=== PATIENT | male | born 1955 | race Caucasian/White ===

== ENCOUNTER 2019-03-21 10:17 | Emergency (ER) | payer OTHER ==
[2019-03-21] MEDS ORDERED: methylPREDNISolone SOD SUCCI 125 MG/2 ML VIAL IV STA (10:39)
[2019-03-21] MEDS ORDERED: IPRATROPIUM 0.5 MG/2.5 ML NEBU INHALATION STA (10:39)
[2019-03-21] MEDS ORDERED: ALBUTEROL NEBULIZED 2.5 MG/3 ML INHALATION STA (10:39)
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
[2019-03-21 11:07] LABS: ALT 39 U/L (4-49); AST 72 U/L (17-59); African American GFR (CKD) >90 (>60 ml/min/1.73 sqM); Albumin 3.3 g/dL (3.5-5.0); Anion Gap 7 mmol/L; Blood Urea Nitrogen 15 mg/dL (9-20); Calcium 9.3 mg/dL (8.4-10.2); Carbon Dioxide 23 mmol/L (22-30); Chloride 112 mmol/L (98-107); Glucose 94 mg/dL (74-99); Non-African American GFR(CKD) >90 (>60 ml/min/1.73 sqM); Potassium 4.3 mmol/L (3.5-5.1); Sodium 142 mmol/L (137-145); Total Protein 6.8 g/dL (6.3-8.2)
[2019-03-21 11:08] LABS: Alkaline Phosphatase 178 U/L (38-126); Magnesium 1.7 mg/dL (1.6-2.3)
[2019-03-21 11:13] LABS: D-Dimer 0.57 mg/L FEU (<0.60); HCT 41.3 % (39.0-53.0); HGB 13.8 gm/dL (13.0-17.5); INR 1.2 (<1.2); MCH 34.8 pg (25.0-35.0); MCHC 33.3 g/dL (31.0-37.0); MCV 104.4 fL (80.0-100.0); Macrocytosis Slight; Mean Platelet Volume 7.9; Platelet Count 108 k/uL (150-450); Prothrombin Time 12.6 sec (9.0-12.0); RBC 3.96 m/uL (4.30-5.90); RDW 14.1 % (11.5-15.5); WBC 4.4 k/uL (3.8-10.6)
--- NOTE | 2019-03-21 11:26 | XR ---
EXAMINATION TYPE: XR chest 2V DATE OF EXAM: 03/21/2019 COMPARISON: 07/07/2011 HISTORY: 63-year-old male shortness of breath, difficulty breathing TECHNIQUE: PA and lateral views FINDINGS: Heart upper limits of normal in size. Aorta within normal limits. Mild interstitial prominence slight ly increased. Nodular density right base. No consolidation or pleural effusion. Mild to moderate ante rior wedging of a lower thoracic vertebral body slightly progressed from 06/05/2011, age indeterminate . Anterior wedging of a midthoracic vertebral body is unchanged. Plate and screw fixation along the b ilateral clavicles. Multiple old healed right-sided rib fracture deformities. IMPRESSION: 1. Increased interstitial prominence could reflect bronchitis or asthma. Correlate for possible under lying COPD. 2. Nodular density at the right base, probable nipple shadow. Short interval follow-up utilizing nipp le markers recommended. 3. Mild to moderate anterior wedging of a lower thoracic vertebral body is age indeterminate but note d to be progressed from 2011. Additional anterior wedging of a midthoracic vertebral body is chronic back to 2011.
[2019-03-21 12:00] LABS: Eosinophils # (M) 0.75 k/uL (0-0.7); Lymphocytes # (M) 1.67 k/uL (1.0-4.8); Monocytes # (M) 0.44 k/uL (0-1.0); Neutrophils # (M) 1.54 k/uL (1.3-7.7); Neutrophils % (M) 35 %; Nucleated Red Blood Cells 0 /100 WBC (0-0); Total Cells Counted 100
[2019-03-21 12:30] VITALS: BP 151/78; PULSE 72; RESP 18; TEMP 98
== END 2019-03-21 12:28 | disposition home or self-care (01) ==
LOC: EC 10:17
DX: J45.901 Unspecified asthma with (acute) exacerbation (principal); I10 Essential (primary) hypertension; Z79.899 Other long term (current) drug therapy; Z87.891 Personal history of nicotine dependence
CPT/HCPCS: 36415; 94640; 93005; 85379; 80053; 83735; 84484; 85025; 85610; 85730; 71046; 99285; 96374; J2930

== ENCOUNTER 2019-04-17 07:19 | Inpatient (IN) | payer OTHER ==
[2019-04-17] MEDS ORDERED: SODIUM CHLORIDE 0.9% 1,000 ML IV ONE (07:35)
[2019-04-17] MEDS ORDERED: SODIUM CHLORIDE 0.9% 500 ML 500 ML IV ONE (07:35)
[2019-04-17] MEDS ORDERED: IPRATROPIUM-ALBUTEROL 3 ML NEB INHALATION STA (07:37)
[2019-04-17] MEDS ORDERED: ENALAPRILAT 1.25 MG/ML 1 ML VIAL IVP STA ×2 (07:40→09:11)
[2019-04-17 07:42] LABS: Glucose,Whole Blood 91 mg/dL (75-99)
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
[2019-04-17 08:05] LABS: Basophils # (A) 0.1 k/uL (0-0.2); Basophils % (A) 2 %; Eosinophils # (A) 0.4 k/uL (0-0.7); Eosinophils % (A) 6 %; HGB 13.8 gm/dL (13.0-17.5); Lymphocytes # (A) 1.2 k/uL (1.0-4.8); Lymphocytes % (A) 18 %; MCH 34.3 pg (25.0-35.0); MCHC 32.9 g/dL (31.0-37.0); MCV 104.2 fL (80.0-100.0); Macrocytosis Slight; Mean Platelet Volume 7.3; Monocytes # (A) 0.7 k/uL (0-1.0); Monocytes % (A) 10 %; Neutrophils % (A) 60 %; Platelet Count 115 k/uL (150-450); RBC 4.03 m/uL (4.30-5.90); WBC 6.7 k/uL (3.8-10.6)
[2019-04-17 08:17] LABS: ALT 26 U/L (4-49); AST 46 U/L (17-59); African American GFR (CKD) >90 (>60 ml/min/1.73 sqM); Albumin 3.2 g/dL (3.5-5.0); Alkaline Phosphatase 184 U/L (38-126); Anion Gap 7 mmol/L; Blood Urea Nitrogen 15 mg/dL (9-20); Calcium 8.7 mg/dL (8.4-10.2); Carbon Dioxide 22 mmol/L (22-30); Chloride 114 mmol/L (98-107); Creatine Kinase 47 U/L (55-170); Glucose 92 mg/dL (74-99); Magnesium 1.9 mg/dL (1.6-2.3); Non-African American GFR(CKD) >90 (>60 ml/min/1.73 sqM); Potassium 3.4 mmol/L (3.5-5.1); Sodium 143 mmol/L (137-145); Total Bilirubin 2.2 mg/dL (0.2-1.3); Total Protein 6.5 g/dL (6.3-8.2)
[2019-04-17 08:25] LABS: Appearance,Urine Clear (Clear); Bilirubin,Urine Negative (Negative); Blood,Urine Negative (Negative); Color,Urine Yellow; Glucose,Urine (UA) Negative (Negative); Ketones,Urine Negative (Negative); Leukocyte Esterase,Urine Negative (Negative); Nitrite,Urine Negative (Negative); Protein,Urine Negative (Negative); Specific Gravity,Urine 1.009 (1.001-1.035)
[2019-04-17 08:30] LABS: INR 1.2 (<1.2); Partial Thromboplastin Time 28.8 sec (22.0-30.0); Prothrombin Time 11.9 sec (9.0-12.0)
[2019-04-17 08:43] LABS: Amphetamine Screen,Urine Not Detected (NotDetected); Barbiturate Screen,Urine Not Detected (NotDetected); Benzodiazepines Screen,Urine Not Detected (NotDetected); Cocaine Screen,Urine Not Detected (NotDetected); Methadone Screen, Urine Not Detected (NotDetected); Opiate Screen,Urine Not Detected (NotDetected); Oxycodone Screen, Urine Not Detected (NotDetected); Phencyclidine Screen,Urine Not Detected (NotDetected); Tricyclic Antidepressant,Urine Not Detected (NotDetected); Urn Cannabinoid Scrn Not Detected (NotDetected)
--- NOTE | 2019-04-17 08:56 | XR ---
EXAMINATION TYPE: XR chest 2V DATE OF EXAM: 04/17/2019 HISTORY: altered mental status. REFERENCE: Previous study dated 03/21/2019. FINDINGS: The study is reversed [id number]. The heart is mildly enlarged. There is some increased opacity in the left lower lobe. This may repres ent developing pneumonia or atelectasis. The right lung is clear. Minimal shadow is no longer clearly evident. There is bilateral internal fixation of the clavicles. There are stable wedge compression fractures o f several of the lower dorsal vertebra. IMPRESSION: WORSENING LEFT LOWER LOBE AIRSPACE DISEASE.
--- NOTE | 2019-04-17 09:05 | CT ---
EXAMINATION TYPE: CT brain wo con DATE OF EXAM: 04/17/2019 COMPARISON: NONE HISTORY: Altered mental status. CT DLP: 2031.3 mGycm Automated exposure control for dose reduction was used. FINDINGS: There are generalized changes of sulcal prominence and ventriculomegaly, compatible with mild atrophi c change. There is diffuse periventricular white matter lucency, compatible with chronic white matter ischemic change. There is no acute focal lesion, mass effect or midline shift identified. I do not s ee evidence of intracranial blood. There is mucoperiosteal thickening involving the ethmoid sinuses, worse on the right than the left. T here is also new periosteal thickening involving the maxillary sinuses and there is an air-fluid leve l in the right maxillary sinus. The mastoid air cells are under aerated this may reflect chronic mast oiditis. The bony calvarium is intact. IMPRESSION: 1. NO ACUTE INTRACRANIAL ABNORMALITY. 2. DEGENERATIVE CHANGE. 3. ACUTE ON CHRONIC MAXILLARY AND ETHMOIDAL SINUS MUCOSAL DISEASE. 4. UNDERAERATION OF THE MASTOIDS MAY REFLECT OLD, CHRONIC MASTOIDITIS.
--- NOTE | 2019-04-17 10:08 | US ---
EXAMINATION TYPE: US liver DATE OF EXAM: 04/17/2019 COMPARISON: NONE CLINICAL HISTORY: Elevated alk phos, pneumonia, bilirubin history of. EXAM MEASUREMENTS: Liver Length: 12.4 cm Gallbladder Wall: 0.3 cm CBD: 0.3 cm Right Kidney: 10.7 x 5.3 x 5.5 cm Patient unable to roll on his side or hold his breath, technically difficult and limited study. Pancreas: Obscured by bowel gas Liver: portions view show lobular attenuating liver, not well seen Gallbladder: limited views show stone and sludge Evidence for sonographic Mason's sign: CBD: wnl as seen limited visualization Right Kidney: wnl as seen, limited view The pancreas is obscured by bowel gas. The liver is normal in size without evidence of biliary dilatation. The liver is somewhat nodular in its appearance. There is a stone and some sludge within the gallbladder. The gallbladder wall measures 3 mm. The comm on hepatic duct measures 3 mm. Limited views of the right kidney are unremarkable. IMPRESSION: 1. NODULAR APPEARANCE TO THE LIVER MAY BE SECONDARY TO CIRRHOSIS. 2. CHOLELITHIASIS.
[2019-04-17] MEDS ORDERED: LACTULOSE 20 GM/30 ML CUP PO ONE (11:34)
[2019-04-17] MEDS ORDERED: NALOXONE 0.4 MG/ML 1 ML VIAL IV PRN (11:35)
[2019-04-17] MEDS: SODIUM CHLORIDE 0.9% 1,000 ML IV SCH ×2 (12:11→23:51)
[2019-04-17] MEDS ORDERED: ACETAMINOPHEN TAB 325 MG TAB PO PRN (17:02)
[2019-04-17] MEDS ORDERED: MELATONIN 3 MG TABLET PO PRN (17:02)
[2019-04-17] MEDS ORDERED: ONDANSETRON 4 MG/2 ML VIAL IVP PRN (17:02)
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
[2019-04-17] MEDS ORDERED: ALBUTEROL NEBULIZED 2.5 MG/3 ML INHALATION PRN (17:04)
[2019-04-17] MEDS ORDERED: DOCUSATE 100 MG CAP PO PRN (17:04)
--- NOTE | 2019-04-17 17:24 | CT ---
EXAMINATION TYPE: CT lumbar spine wo con DATE OF EXAM: 04/17/2019 COMPARISON: CT 12/16/2014 HISTORY: 63-year-old male low back pain, pain to palpation of the L4 spinous process. TECHNIQUE: Contiguous axial scanning of the lumbar spine without IV contrast. Coronal and sagittal re constructions performed. CT DLP: 877.5 mGycm Automated exposure control for dose reduction was used. FINDINGS: Small hiatal hernia. Dependent opacity right base, probably atelectasis. Tortuous lower thoracic aort a. Large collateral vessels in the left upper quadrant. 2 mm nonobstructing right renal calculus. Lar ge 3.3 cm gallstone. Likely tiny margin is 6 mm lateral left kidney. Chronic appearing inferior endplate fracture of L3 with overall 25% anterior height loss. Chronic appearing superior endplate deformity of T12. No retropulsion into the spinal canal. Some subtle lucencies are seen around the inferior endplate of L4 particularly on the axial series, r eferred to soft tissue windows axial image 56 and coronal image 32. Overall vertebral body height los s is maintained. No retropulsion into the spinal canal. Bulging discs are present from L3 through S1 levels. There may be mild narrowing of the spinal canal at L3-L4. No high-grade canal compromise. Facet arthropathy lower lumbar spine. The left, changes located in mild to moderate neuroforaminal narrowing at multiple levels. On the right, moderate neuroforaminal narrowing at L3-L4 and [id number] at additional levels. IMPRESSION: 1. CHRONIC APPEARING ENDPLATE DEFORMITIES OF T12 AND L3 VERTEBRAL BODIES. 2. HOWEVER, SUBTLE LUCENCIES ARE PRESENT INVOLVING THE L4 INFERIOR ENDPLATE. FINDINGS HIGHLY SUSPICIO US FOR A NONDISPLACED INFERIOR ENDPLATE FRACTURE. 3. DEGENERATIVE DISC DISEASE AND FACET ARTHROPATHY ABOVE. NO RETROPULSION SEEN INTO THE SPINAL CAN AL.
--- NOTE | 2019-04-17 17:44 | CT ---
EXAMINATION TYPE: CT chest wo con DATE OF EXAM: 04/17/2019 COMPARISON: Radiograph same day HISTORY 63-year-old male cough, pneumonia TECHNIQUE: Contiguous axial scanning of the chest without IV contrast. Coronal and sagittal reconstru ctions performed. CT DLP: 569.1 mGycm Automated exposure control for dose reduction was used. FINDINGS: Heart borderline enlarged. No pericardial effusion. Mild aortic valvular calcifications. Some scatter ed coronary artery calcifications. Aortic root aneurysmal at 4.2 cm. Ascending aorta aneurysmal at 4.6 cm. Upper descending thoracic aor ta ectatic at 3.2 cm. Conventional arch vessel branching anatomy. Prominent 8 mm precarinal lymph node. No thoracic lymphadenopathy by CT size criteria. Mild diffuse bronchial wall thickening. Some patchy groundglass changes are present in the peripheral left base. Additional dependent opacity posterior right base. Some focal patchy densities anterior r ight upper lobe. One of these areas have a nodular appearance measuring 9 mm. No pleural effusion. Mild bilateral gynecomastia. Visualized upper abdomen shows cirrhotic morphology of the liver with extensive collateral vessels an d recanalized umbilical vein. Small hernia. Bone old healed rib fracture deformities on both sides. Moderate degenerative disc disease throughout with chronic appearing endplate deformities scattered throughout such as at T9 and T12. IMPRESSION: 1. PATCHY DENSITY ANTERIOR RIGHT UPPER LOBE AND PERIPHERAL LEFT BASE. INFECTIOUS/INFLAMMATORY FOCI AR E SUGGESTED. CORRELATE FOR POSSIBLE PNEUMONIA. 2. DEPENDENT OPACITY AT THE POSTERIOR RIGHT BASE COULD REPRESENT ADDITIONAL PNEUMONIA OR PROMINENT AT ELECTASIS. 3. ONE OF THE RIGHT UPPER LOBE DENSITIES HAVE A MORE NODULAR CONFIGURATION MEASURING 9 MM. 3 MONTH FO LLOW-UP CT RECOMMENDED TO ENSURE RESOLUTION. 4. 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 5. CIRRHOSIS AND PORTAL VENOUS HYPERTENSION.
[2019-04-17] MEDS ORDERED: cloNIDine HCL 0.2 MG TAB PO STA (21:31)
[2019-04-17] MEDS ORDERED: hydrALAZINE HCL 20 MG/ML 1 ML VIAL IVP PRN (21:32)
[2019-04-18 06:19] LABS: HCT 36.2 % (39.0-53.0); HGB 12.1 gm/dL (13.0-17.5); MCH 34.4 pg (25.0-35.0); MCHC 33.4 g/dL (31.0-37.0); MCV 102.8 fL (80.0-100.0); Macrocytosis Slight; Mean Platelet Volume 7.3; Platelet Count 116 k/uL (150-450); RBC 3.52 m/uL (4.30-5.90); RDW 14.3 % (11.5-15.5); WBC 6.6 k/uL (3.8-10.6)
[2019-04-18 06:44] LABS: ALT 21 U/L (4-49); AST 34 U/L (17-59); African American GFR (CKD) >90 (>60 ml/min/1.73 sqM); Albumin 2.5 g/dL (3.5-5.0); Alkaline Phosphatase 111 U/L (38-126); Anion Gap 5 mmol/L; Blood Urea Nitrogen 17 mg/dL (9-20); Calcium 8.3 mg/dL (8.4-10.2); Carbon Dioxide 20 mmol/L (22-30); Chloride 114 mmol/L (98-107); Glucose 83 mg/dL (74-99); Magnesium 1.7 mg/dL (1.6-2.3); Non-African American GFR(CKD) >90 (>60 ml/min/1.73 sqM); Phosphorus 3.2 mg/dL (2.5-4.5); Potassium 3.6 mmol/L (3.5-5.1); Sodium 139 mmol/L (137-145); Total Bilirubin 2.3 mg/dL (0.2-1.3); Total Protein 5.4 g/dL (6.3-8.2)
[2019-04-18] MEDS: PANTOPRAZOLE 40 MG TABLET PO SCH (08:41)
[2019-04-18] MEDS: LISINOPRIL 20 MG TAB PO SCH (08:41)
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
[2019-04-18] MEDS ORDERED: LACTULOSE 20 GM/30 ML CUP PO ONE (12:07)
[2019-04-18] MEDS ORDERED: AZITHROMYCIN 500 MG in SODIUM CHLORIDE 0.9% 250 ML IVPB SCH (12:15)
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
[2019-04-18] MEDS: SODIUM CHLORIDE 0.9% 1,000 ML IV SCH (13:29)
--- NOTE | 2019-04-18 15:17 | P.PN ---
Subjective Progress Note Date: 04/18/19 Principal diagnosis: Confusion Patient is a 63-year-old male with hepatitis C, COPD, hypertension, and history of alcohol abuse who presented from [facility] secondary to altered mentation. Apparently his roommate became concerned when he was becoming more altered last evening and this morning. In the emergency department he underwent an extensive evaluation. He was significantly hypertensive with a blood pressure of 207/116. His laboratory analysis showed a potassium of 3.4, chloride 114, bilirubin 2.2, alkaline phosphatase 184, ammonia 44, 2.2. His urinalysis and urine drug screen were normal. He underwent a CT head no acute intracranial abnormality, degenerative changes, acute on chronic maxillary ethmoid sinusitis, and chronic mastoiditis. Liver ultrasound showed a nodular appearance with cholelithiasis. X-ray showed worsening left lower lobe airspace disease as well as stable wedge compression fractures of the lower dorsal vertebra. He was given a dose of lactulose emergency department for concerns of hepatic encephalopathy. Patient was admitted for further evaluation of acute encephalopathy. He was noted to have acute back pain over the L4 area. He underwent a CT lumbar spine showed chronic-appearing endplate deformities of T12 and L3 as well as subacute fracture of the endplate of L4 and significant degenerative disc disease. He was seen by orthopedic spine surgery who recommended LSO brace to be worn when he is out of bed or elevated greater than 45, and outpatient follow-up in 2-3 weeks. He underwent a CT chest which showed a patchy density in the anterior right upper lobe, peripheral left base suspicious of infectious or inflammatory foci and a 9 mm nodular density with recommended 3 month follow-up. Seen by pulmonary who does not feel there is an indication for acute antibiotics and he should be followed in 3 months. Patient initially expresses to me that he is still confused, however on pulmonary ev aluation he knew the year, the president, and answered questions appropriately. Patient seen and examined at bedside. He reports that he is still feeling "out of it". He is not able to quantify further states that his memory is gone. He refuses to answer questioning as to what year it is. He states he is at [facility]. He answers other questions appropriately. Objective - Vital Signs Vital signs: Vital Signs Temp 99.5 F 04/18/19 05:35 Pulse 79 04/18/19 07:43 Resp 18 04/18/19 08:00 BP 171/84 04/18/19 05:35 Pulse Ox 95 04/18/19 07:29 Intake & Output 04/17/19 04/18/19 04/18/19 18:59 06:59 18:59 Intake Total 500 Output Total 400 Balance 100 Weight 90.718 kg Intake: Oral 500 Output: Urine 400 Other: # Voids 2 1 - Exam General: non toxic, no distress, appears at stated age Derm: warm, dry Head: atraumatic, normocephalic, symmetric Eyes: EOMI, no lid lag, anicteric sclera Mouth: no lip lesion, mucus membranes moist Cardiovascular: S1S2 reg, no murmur, positive posterior tibial pulse bilateral, Lungs: Decreased bs bilateral, no rhonchi, no rales , no accessory muscle use Abdominal: soft, nontender to palpation, no guarding, no appreciable organomegaly Ext: no gross muscle atrophy, no edema, no contractures Neuro: CN II-XI grossly intact, no focal neuro deficits Psych: Alert, oriented, appropriate affect - Labs CBC & Chem 7: 04/18/19 05:53 04/18/19 05:53 Labs: Abnormal Lab Results - Last 24 Hours (Table) 04/18/19 04/18/19 04/18/19 Range/Units 05:53 05:53 05:53 RBC 3.52 L (4.30-5.90) m/uL Hgb 12.1 L (13.0-17.5) gm/dL Hct 36.2 L (39.0-53.0) % MCV 102.8 H (80.0-100.0) fL Plt Count 116 L (150-450) k/uL Chloride 114 H (98-107) mmol/L Carbon Dioxide 20 L (22-30) mmol/L Calcium 8.3 L (8.4-10.2) mg/dL Total Bilirubin 2.3 H (0.2-1.3) mg/dL Ammonia 36 H (<30) umol/L Total Protein 5.4 L (6.3-8.2) g/dL Albumin 2.5 L (3.5-5.0) g/dL Microbiology - Last 24 Hours (Table) 04/17/19 07:49 Blood Culture - Preliminary Blood No Growth after 24 hours Assessment and Plan Assessment: Acute encephalopathy, possibly hepatic - ammonia level improving lactulose X 1 again today - neuro checks - MRI brain 2/3 - may be hypertensive encephalopathy - thiamine L4 subacute inferior endplate compression deformity with acute low back pain -Orthospine recommendations appreciated -LSO brace when out of bed or elevated greater than 45 -Outpatient follow-up in 2-3 weeks - Able to mobilize. Pulmonary nodule - Pulm recs appreciated repeat CT in 3 months HTN urgency, resolved - Continue lisinopril - follow BP closely Hep C with probable cirrhosis - lactulose again today - repeat liver enzymes and ammonia in AM - limit IVF - never been treated Thrombocytopenia - chronic and unchanged CHolelithiasis - will need GB removal in the future - outpatient surgery eval Hypokalemia, resolved DVT prophylaxis: SCDs Discussed with: patient, nursing, Dr. Larson, Dr. Espinoza Anticipated discharge date: in AM pending MRI Anticipated discharge place: return to skilled nursing A total of 25 minutes was spent on the care of this complex patient more than 50% of the time was spent in counseling and care coordination.
[2019-04-18] MEDS: MAGNESIUM SULFATE-D5W PMX 1 GM in DEXTROSE/WATER 1 100ML.BAG IVPB SCH ×2 (16:41→17:44)
[2019-04-18] MEDS ORDERED: amLODIPine 5 MG TAB PO SCH (21:00)
[2019-04-19] MEDS: SODIUM CHLORIDE 0.9% 1,000 ML IV SCH ×2 (01:20→13:45)
[2019-04-19] MEDS: LISINOPRIL 20 MG TAB PO SCH (07:47)
[2019-04-19] MEDS: PANTOPRAZOLE 40 MG TABLET PO SCH (07:47)
[2019-04-19 10:23] LABS: HCT 36.1 % (39.0-53.0); MCH 34.6 pg (25.0-35.0); MCHC 33.3 g/dL (31.0-37.0); MCV 104.1 fL (80.0-100.0); Macrocytosis Slight; Mean Platelet Volume 7.4; Platelet Count 106 k/uL (150-450); RBC 3.47 m/uL (4.30-5.90); RDW 14.1 % (11.5-15.5); WBC 5.6 k/uL (3.8-10.6)
[2019-04-19 10:34] LABS: ALT 21 U/L (4-49); AST 36 U/L (17-59); African American GFR (CKD) >90 (>60 ml/min/1.73 sqM); Albumin 2.4 g/dL (3.5-5.0); Alkaline Phosphatase 97 U/L (38-126); Anion Gap 5 mmol/L; Blood Urea Nitrogen 16 mg/dL (9-20); Calcium 8.1 mg/dL (8.4-10.2); Carbon Dioxide 22 mmol/L (22-30); Chloride 112 mmol/L (98-107); Glucose 99 mg/dL (74-99); Non-African American GFR(CKD) >90 (>60 ml/min/1.73 sqM); Potassium 3.4 mmol/L (3.5-5.1); Sodium 139 mmol/L (137-145); Total Bilirubin 2.2 mg/dL (0.2-1.3); Total Protein 5.3 g/dL (6.3-8.2)
--- NOTE | 2019-04-19 11:00 | MR ---
EXAMINATION TYPE: MR brain wo con DATE OF EXAM: 04/19/2019 COMPARISON: 04/17/2019 HISTORY: Confusion TECHNIQUE: T1-weighted sagittal, T2, FLAIR, and diffusion axial, and T2 coronal coronal views of the brain are submitted. FINDINGS: Exam limited by motion artifact. There is no evidence of acute ischemia. Mild generalized degenerative change. There is no mass effect . Craniocervical junction maintained. Sella turcica has a normal appearance. There are changes of bilat eral mastoiditis and chronic sinusitis. No cerebellopontine angle mass. White matter: There is confluent as well as numerous focal areas of abnormal signal throughout the wh ite matter bilaterally in a nonspecific pattern. IMPRESSION: 1. No acute intracranial process is mild generalized degenerative change and diffuse white matter non specific changes are noted. Findings are most likely in the basis of remote microvascular ischemia. D emyelinating process not excluded correlate clinically. 2 extensive bilateral mastoiditis and chronic sinusitis.
[2019-04-19] MEDS ORDERED: POTASSIUM CHLORIDE ER 20 MEQ TAB.ER PO STA (13:06)
[2019-04-19] MEDS ORDERED: LACTULOSE 20 GM/30 ML CUP PO ONE (13:15)
--- NOTE | 2019-04-19 13:16 | P.DS ---
Providers Date of admission: 04/17/19 11:35 Expected date of discharge: 04/19/19 Attending physician: Delfina Tripp DO Consults: 04/17/19 17:54 Consult Physician Routine Consulting Provider: Ronny Espinoza Consult Reason/Comments: L4 endplate deformity Do you want consulting provider notified?: Yes 04/17/19 17:58 Consult Physician Routine Consulting Provider: Sophia Larson Consult Reason/Comments: pneumonia Do you want consulting provider notified?: Yes Primary care physician: Stated None Hospital Course: Discharge Diagnosis: Acute encephalopathy, multifactorial due to hepatic encephalopathy, possible weirnicke's, and sinusitis Cirrhosis due to hep C and ETOH abuse L4 endplate subacute fracture Chronic sinusitis Pulmonary nodule HTN urgency Thrombocytopenia, releated to cirrhosis Cholelithiasis Hypokalemia Hospital Course: Patient is a 63-year-old male with hepatitis C, COPD, hypertension, and history of alcohol abuse who presented from [facility] secondary to altered mentation. Apparently his roommate became concerned when he was becoming more altered last evening and this morning. In the emergency department he underwent an extensive evaluation. He was significantly hypertensive with a blood pressure of 207/116. His laboratory analysis showed a potassium of 3.4, chloride 114, bilirubin 2.2, alkaline phosphatase 184, ammonia 44, 2.2. His urinalysis and urine drug screen were normal. He underwent a CT head no acute intracranial abnormality, degenerative changes, acute on chronic maxillary ethmoid sinusitis, and chronic mastoiditis. Liver ultrasound showed a nodular appearance with cholelithiasis. X-ray showed worsening left lower lobe airspace disease as well as stable wedge compression fractures of the lower dorsal vertebra. He was given a dose of lactulose emergency department for concerns of hepatic encephalopathy. Patient was admitted for further evaluation of acute encephalopathy. He was noted to have acute back pain over the L4 area. He underwent a CT lumbar spine showed chronic-appearing endplate deformities of T12 and L3 as well as subacute fracture of the endplate of L4 and significant degenerative disc disease. He was seen by orthopedic spine surgery who recommended LSO brace to be worn when he is out of bed or elevated greater than 45, and outpatient follow-up in 2-3 weeks. He underwent a CT chest which showed a patchy density in the anterior right upper lobe, peripheral left base suspicious of infectious or inflammatory foci and a 9 mm nodular density with recommended 3 month follow-up. Seen by pulmonary who does not feel there is an indication for acute antibiotics and he should be followed in 3 months. Patient initially expresses to me that he is still confused, however on pulmonary evaluation he knew the year, the president, and answered questions appropriately. He continued to improve. MRI of the brain demonstrated no acute intracranial process with mild degenerative changes and nonspecific white matter changes. Secondary to remote microvascular vascular ischemia. He was noted to have bilateral mastoiditis and chronic sinusitis. Patient determined stable for discharged. He is to wear LSO brace when up greater than 45 her walking secondary to comfort. Recommended follow-up with ENT regarding chronic sinusitis. Started on Flonase, Claritin. Follow up with Dr. Espinoza for his back pain in 1-2 weeks. Recommended lactulose TID and GI evaluation upon release for incarceration. Follow-up with Dr. Larson in [address] for stability of plumonary nodule. Outpatient surgical evaluation for cholelithiasis Stable for [facility] to [facility]. Patient seen and examined at bedside.He reports still being confused but he is able to tell me the physicians which saw him and their recommendations. No other complaints currently. Vital signs reviewed and stable. General: non toxic, no distress, appears at stated age Derm: warm, dry Head: atraumatic, normocephalic, symmetric Eyes: EOMI, no lid lag, anicteric sclera Mouth: no lip lesion, mucus membranes moist Cardiovascular: S1S2 reg, no murmur, positive posterior tibial pulse bilateral, Lungs: CTA bilateral, no rhonchi, no rales , no accessory muscle use Abdominal: soft, nontender to palpation, no guarding, no appreciable organ omegaly Ext: no gross muscle atrophy, no edema, no contractures Neuro: CN II-XI grossly intact, no focal neuro deficits Psych: Alert, oriented, appropriate affect A total of 35 minutes of time were spent preparing this complex discharge summary . Patient Condition at Discharge: Stable Plan - Discharge Summary New Discharge Prescriptions: New Lactulose 20 gm PO BID #1 bottle amLODIPine [Norvasc] 5 mg PO HS tab Loratadine [Claritin] 10 mg PO DAILY #30 tab Fluticasone Nasal [place] [Flonase Nasal [place]] 2 spr EA NOSTRIL DAILY #1 bottle Continue Omeprazole [PriLOSEC] 20 mg PO DAILY Ibuprofen [Motrin] 600 mg PO TID PRN PRN Reason: BACK PAIN Lisinopril [Zestril] 20 mg PO DAILY Discharge Medication List Ibuprofen [Motrin] 600 mg PO TID PRN 04/17/19 [History] Lisinopril [Zestril] 20 mg PO DAILY 04/17/19 [History] Omeprazole [PriLOSEC] 20 mg PO DAILY 04/17/19 [History] Fluticasone Nasal [place] [Flonase Nasal [place]] 2 spr EA NOSTRIL DAILY #1 bottle 04/19/19 [Rx] Lactulose 20 gm PO BID #1 bottle 04/19/19 [Rx] Loratadine [Claritin] 10 mg PO DAILY #30 tab 04/19/19 [Rx] amLODIPine [Norvasc] 5 mg PO HS tab 04/19/19 [Rx] Follow up Appointment(s)/Referral(s): Ronny Espinoza DO [Doctor of Osteopathic Medicine] - 4 Weeks None,Stated [Primary Care Provider] - 1-2 days Ryan Reese MD [STAFF PHYSICIAN] - 2 Weeks Sophia Larson MD [STAFF PHYSICIAN] - 07/19/19 (needs to follow-up in 3 months ) Activity/Diet/Wound Care/Special Instructions: Activity: No lifting greater than 20 pounds Diet: regular Special Instructions: Patient determined stable for discharged. LSO brace to be worn when patient is out of bed except for bathing and showering. Patient may ambulate as tolerated with brace intact. No repetitive bending twisting or lifting. No lifting greater than 20 pounds. Follow up with Dr. Espinoza for his back pain in 2-4 weeks. Recommended follow-up with ENT regarding chronic sinusitis. Started on Flonase, Claritin. Recommended lactulose TID and GI evaluation upon release for incarceration. Follow-up with Dr. Larson in [address] for stability of plumonary nodule. Outpatient surgical evaluation for cholelithiasis Stable for return to [facility]. Discharge Disposition: DC/TRANSFER COURT/LAW
[2019-04-19 14:07] VITALS: BP 149/82; PULSE 64; RESP 16; TEMP 97.9
== END 2019-04-19 15:55 | disposition home or self-care (01) | DRG 442 ==
LOC: EC 07:19 → 6NMEDSUR 11:35
PROVIDERS: ADMIT Internal Medicine; ATTEND Internal Medicine
DX: K72.00 Acute and subacute hepatic failure without coma (principal); S32.049A Unspecified fracture of fourth lumbar vertebra, initial encounter for closed fracture; S32.039A Unspecified fracture of third lumbar vertebra, initial encounter for closed fracture; S22.089A Unspecified fracture of T11-T12 vertebra, initial encounter for closed fracture; K76.6 Portal hypertension; E51.2 Wernicke's encephalopathy; K70.30 Alcoholic cirrhosis of liver without ascites; D69.6 Thrombocytopenia, unspecified; H70.93 Unspecified mastoiditis, bilateral; I71.2 Thoracic aortic aneurysm, without rupture; B19.20 Unspecified viral hepatitis C without hepatic coma; E87.6 Hypokalemia; F17.210 Nicotine dependence, cigarettes, uncomplicated; I10 Essential (primary) hypertension; I16.0 Hypertensive urgency; J32.9 Chronic sinusitis, unspecified; J44.9 Chronic obstructive pulmonary disease, unspecified; K80.20 Calculus of gallbladder without cholecystitis without obstruction; M47.816 Spondylosis without myelopathy or radiculopathy, lumbar region; F10.21 Alcohol dependence, in remission; M51.36 Other intervertebral disc degeneration, lumbar region; R91.1 Solitary pulmonary nodule; Z79.899 Other long term (current) drug therapy; Z87.11 Personal history of peptic ulcer disease; Z82.49 Family history of ischemic heart disease and other diseases of the circulatory system; Z80.9 Family history of malignant neoplasm, unspecified
CPT/HCPCS: 36415; 70450; 70551; 71046; 71250; 72131; 76705; 80053; 80306; 81003; 82140; 82550; 82607; 83690; 83735; 83930; 84100; 84443; 84484; 85025; 85027; 85610; 85730; 87040; 87502; 93005; 94640; 94760; 96361; 96374; 96376; 99285

== ENCOUNTER 2019-04-23 09:55 | Inpatient (IN) | payer OTHER ==
[2019-04-23 10:07] LABS: Glucose,Whole Blood 92 mg/dL (75-99)
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
[2019-04-23] MEDS ORDERED: THIAMINE 100 MG/ML 2 ML VIAL IM STA (10:09)
[2019-04-23 10:47] LABS: INR 1.1 (<1.2); Partial Thromboplastin Time 28.5 sec (22.0-30.0); Prothrombin Time 11.3 sec (9.0-12.0)
[2019-04-23 10:50] LABS: ALT 32 U/L (4-49); AST 55 U/L (17-59); African American GFR (CKD) >90 (>60 ml/min/1.73 sqM); Albumin 3.2 g/dL (3.5-5.0); Alkaline Phosphatase 169 U/L (38-126); Anion Gap 7 mmol/L; Blood Urea Nitrogen 20 mg/dL (9-20); Calcium 9.1 mg/dL (8.4-10.2); Carbon Dioxide 24 mmol/L (22-30); Chloride 109 mmol/L (98-107); Creatine Kinase 60 U/L (55-170); Glucose 94 mg/dL (74-99); Non-African American GFR(CKD) >90 (>60 ml/min/1.73 sqM); Potassium 3.8 mmol/L (3.5-5.1); Sodium 140 mmol/L (137-145); Total Bilirubin 1.3 mg/dL (0.2-1.3); Total Protein 6.4 g/dL (6.3-8.2)
[2019-04-23 10:52] LABS: HCT 38.4 % (39.0-53.0); HGB 13.2 gm/dL (13.0-17.5); MCH 35.3 pg (25.0-35.0); MCHC 34.3 g/dL (31.0-37.0); Macrocytosis Slight; Mean Platelet Volume 7.7; Platelet Count 114 k/uL (150-450); RBC 3.73 m/uL (4.30-5.90); RDW 14.2 % (11.5-15.5); WBC 4.4 k/uL (3.8-10.6)
--- NOTE | 2019-04-23 11:01 | XR ---
EXAMINATION TYPE: XR chest 2V DATE OF EXAM: 04/23/2019 COMPARISON: 04/17/2019 TECHNIQUE: PA and lateral views submitted. HISTORY: Altered mental status FINDINGS: The lungs are clear and there is no pneumothorax, pleural effusion, or focal pneumonia. Hypertrophi c and degenerative change of the spine with a age-indeterminate compression or wedge deformities. Pos tsurgical change involving the clavicles. Heart mildly enlarged. Retrocardiac density is noted which may represent a hiatal hernia should be correlated clinically. Heart is prominent in size. IMPRESSION: 1. No acute process. Stable large retrocardiac density most likely in the basis of a hiatal hernia. 2. Stable cardiomegaly and findings suggestive of COPD. 3. Ectasia or mild aneurysmal dilation of the thoracic aorta.
--- NOTE | 2019-04-23 11:05 | CT ---
EXAMINATION TYPE: CT brain wo con DATE OF EXAM: 04/23/2019 COMPARISON: 04/17/2019 HISTORY: altered mental status, lethargic CT DLP: 1025.4 mGycm Automated exposure control for dose reduction was used. FINDINGS: Mild generalized degenerative change with diffuse periventricular low attenuation most likely in the basis of remote microvascular ischemia. No acute hemorrhage or mass effect. No midline shift. Changes of chronic sinusitis are noted. Calvarium intact. Low-attenuation the external capsule could been the basis of remote ischemic change. Findings similar to the prior exam. IMPRESSION: DEGENERATIVE AND NONSPECIFIC WHITE MATTER CHANGES. IF THERE IS CONCERN FOR ACUTE ISCHEMIA CORRELATE W ITH MRI CLINICALLY WARRANTED.
[2019-04-23 11:16] LABS: Monocytes # (M) 0.57 k/uL (0-1.0); Neutrophils # (M) 2.33 k/uL (1.3-7.7); Neutrophils % (M) 53 %; Nucleated Red Blood Cells 0 /100 WBC (0-0); Total Cells Counted 100
[2019-04-23 11:17] LABS: Anisocytosis (M) Present; Poikilocytosis (M) Present
[2019-04-23] MEDS ORDERED: LACTULOSE 20 GM/30 ML CUP PO ONE (11:44)
[2019-04-23] MEDS ORDERED: NALOXONE 0.4 MG/ML 1 ML VIAL IV PRN (11:44)
[2019-04-23] MEDS ORDERED: SODIUM CHLORIDE 0.9% 1,000 ML IV SCH (11:45)
[2019-04-23 12:39] LABS: Appearance,Urine Clear (Clear); Bilirubin,Urine Negative (Negative); Blood,Urine Negative (Negative); Color,Urine Yellow; Glucose,Urine (UA) Negative (Negative); Ketones,Urine Negative (Negative); Leukocyte Esterase,Urine Negative (Negative); Nitrite,Urine Negative (Negative); Protein,Urine Negative (Negative); Specific Gravity,Urine 1.013 (1.001-1.035)
[2019-04-23 12:49] LABS: Amphetamine Screen,Urine Not Detected (NotDetected); Barbiturate Screen,Urine Not Detected (NotDetected); Benzodiazepines Screen,Urine Not Detected (NotDetected); Cocaine Screen,Urine Not Detected (NotDetected); Methadone Screen, Urine Not Detected (NotDetected); Opiate Screen,Urine Not Detected (NotDetected); Oxycodone Screen, Urine Not Detected (NotDetected); Phencyclidine Screen,Urine Not Detected (NotDetected); Tricyclic Antidepressant,Urine Not Detected (NotDetected); Urn Cannabinoid Scrn Not Detected (NotDetected)
--- NOTE | 2019-04-23 13:32 | P.HPIM ---
History of Present Illness Chief Complaint: Altered mental status This is a 63-year-old male with history of liver cirrhosis, alcoholism and chron ic hepatitis C who was presenting here from local correction due to alteration in mental status in form of lethargy. One week ago prior to this admission patient was admitted to our institution with a similar complaint. At that time he had extensive workup including CT and MRI of the brain. His ammonia was elevated and he was treated with fluctuance and after improvement in his mental status was discharge from the hospital. At that time he was evaluated by pulmonary service due to some infiltrates in the lung and orthopedic service due to L4 endplate fracture. Apparently upon discharge patient condition continued to deteriorate, became lethargic again and he was brought back to emergency department. Patient is currently lethargic sleepy. Except easily and can provide some limited history. Patient knows that he is in the hospital in [place] not sure about the date or time. He states that he has a history of liver problems and drinking. He cannot tell me if he was taking his lactulose or not. She teens that he did not have bowel movement for the last one or 2 days. He denies any headache, photophobia, nausea or vomiting, neck pain, chest pain or shortness of breath, cough, abdominal pain or melena. She denies any usage of any drugs. He did not experience any fever chills or malaise. Patten's blood work was consistent with highly elevated ammonia 109. CT of the brain was unremarkable. Chest x- ray showed stable changes from before. He was started on left shows an plan for admission for further management. Review of Systems Review of system was negative except mentioned in HPI Past Medical History Past Medical History: Asthma, COPD, Hypertension, Liver Disease Additional Past Medical History / Comment(s): Pt recently admitted to [facility] on 04/17/19 with acute encephalopathy multifactoral d/t hepatic encephalopathy, possible weirnickes, thrombocytopenia, cholilithiasis, hypokalemia, pulmonary nodule, htn urgency, L4 subacute fracture. Other hx; Hepatitis C, ETOH abuse, chronic sinusitis, current R clavicular fracture. History of Any Multi-Drug Resistant Organisms: None Reported Past Surgical History: Orthopedic Surgery Additional Past Surgical History / Comment(s): ORIF R elbow, R hand fracture with surgery, bilateral clavicle surgery, EGD d/t bleeding ulcer, colonoscopy. Past Anesthesia/Blood Transfusion Reactions: No Reported Reaction Smoking Status: Current every day smoker - Past Family History Father Family Medical History: Myocardial Infarction ([place]) Additional Family Medical History / Comment(s): about 40 Mother Family Medical History: Cancer, Myocardial Infarction ([place]) Medications and Allergies Home Medications Medication Instructions Recorded Confirmed Type Lisinopril [Zestril] 20 mg PO DAILY 04/17/19 04/23/19 History Omeprazole [PriLOSEC] 20 mg PO DAILY 04/17/19 04/23/19 History Lactulose 20 gm PO BID #1 bottle 04/19/19 04/23/19 Rx Loratadine [Claritin] 10 mg PO DAILY #30 tab 04/19/19 04/23/19 Rx amLODIPine [Norvasc] 5 mg PO HS tab 04/19/19 04/23/19 Rx Allergies Allergy/AdvReac Type Severity Reaction Status Date / Time No Known Allergies Allergy Verified 04/23/19 12:05 Physical Exam Vitals: Vital Signs Temp Pulse Resp BP Pulse Ox 04/23/19 13:06 20 04/23/19 12:00 59 L 16 153/87 100 04/23/19 11:08 60 16 150/90 100 04/23/19 10:06 16 04/23/19 10:02 97.6 F 59 L 16 154/100 100 Intake and Output 04/22/19 04/23/19 04/23/19 22:59 06:59 14:59 Other: Weight 83.915 kg Vital Signs: I have reviewed the vital signs. GENERAL: Patient is lethargic, he is able to keep up conversation and follow two-step commands and answer questions. He appears comfortable in no any apparent distress Eyes: PERRL, extraoculry movements intact, clear conjunctiva Head: : Atraumatic external nose and ears, oropharyngeal mucosa is moist wit hout lesions or exudates Neck: Symmetric, trachea midline, No thyromegaly, no masses or neck vain pulsation, no neck rigidity CVS: +S1/S2, No murmurs or gallops. Peripheral pulses 2+ and equal in all extremities. RESP: Unlabored respiratory effort. Clear to auscultation bilaterally. Abdomen: Bowel sounds present in all 4 quadrants, Soft to palpation, Nontender/Nondistended, No hepatosplenomegaly, no hernias or masses, no CVA tnderness Musculoskeletal: Extremities w/o deformity, No cyanosis or clubbing, no joint swelling Skin: Warm, Dry. No rashes or lesions Neuro: bulk loader II-XII grossly intact, motor strenght 5/5 i upper and lower extremities, no clonus, patellar DTRs 2+ and sympetrical; asterixis in both hands is present Psych: Lethargic, oriented to place not in time Results CBC & Chem 7: 04/23/19 10:05 04/23/19 10:05 Labs: Abnormal Lab Results - Last 24 Hours (Table) 04/23/19 04/23/19 04/23/19 Range/Units 10:05 10:05 10:05 RBC 3.73 L (4.30-5.90) m/uL Hct 38.4 L (39.0-53.0) % MCV 103.0 H (80.0-100.0) fL MCH 35.3 H (25.0-35.0) pg Plt Count 114 L (150-450) k/uL Chloride 109 H (98-107) mmol/L Alkaline Phosphatase 169 H (38-126) U/L Ammonia 106 H (<30) umol/L Albumin 3.2 L (3.5-5.0) g/dL Thrombosis Risk Factor Assmnt - Choose All That Apply Any of the Below Risk Factors Present?: Yes Each Factor Represents 1 point: Abnormal pulmonary function (COPD), Obesity (BMI >25) Other Risk Factors: Yes Each Risk Factor Represents 2 Points: Age 61-74 years Other congenital or acquired thrombophilia - If yes, enter type in comment: No Thrombosis Risk Factor Assessment Total Risk Factor Score: 4 Thrombosis Risk Factor Assessment Level: Moderate Risk Assessment and Plan Assessment: 1. Acute toxic metabolic encephalopathy Clinically probably due to hepatic encephalopathy and hyperammonemia No clinically obvious precipitants I do not see any clinical evidence of GI bleed or active infection Mild dehydration is quite possible Continue lactulose to 2-3 soft bowel movements a day Consult gastroenterology IV fluids Neurochecks Check stool for occult blood Patient may need to have EGD If no significant improvement with above measures, will consider other etiologies and obtain neurological consultation 2. Liver cirrhosis and chronic hepatitis C history of drinking I don't feel the patient has any signs of withdrawals He has been in correction and did not drink for last couple weeks Continue to monitor IV fluids Multivitamin and thiamine supplementation He will need close follow-up with gastroenterology I'm not sure what is the status of treatment of his hepatitis C and this might need to be addressed on outpatient basis 3. L4 endplate fracture Patient is to wear brace when upright I do not see any braces in the room and we will need to inquire further about this Full code Surrogate decision-maker is not pain May need 2 or more midnights stay
[2019-04-23] MEDS: LACTULOSE 20 GM/30 ML CUP PO SCH ×3 (15:09→21:00)
[2019-04-23] MEDS: RIFAXIMIN 550 MG TABLET PO SCH (20:59)
[2019-04-23] MEDS: FLUTICASONE 50MCG/SPRAY NASAL 16GM EA NOSTRIL SCH (21:01)
--- NOTE | 2019-04-23 22:40 | CONS ---
CONSULTATION DATE OF DICTATION: April 23, 2019. REASON FOR CONSULTATION: Altered mental status. HISTORY OF PRESENT ILLNESS: The patient is a 63-year-old white male with history of alcoholic liver cirrhosis/chronic hepatitis C infection, who is presently incarcerated for the last 1 year duration, was brought into the emergency room for altered mental status and was noted to have elevated ammonia consistent with hepatic encephalopathy. He had a similar episode about a week ago and was admitted to the hospital and was treated with lactulose and discharged home. According to the ER notes, the patient following discharge from the hospital, continued to deteriorate and somewhat was more confused and hence removed. Came back to the emergency room in the ammonia level was noted to be elevated at 106. The patient is able to provide a reasonable history, but presently denies any abdominal pain. He reports no nausea, vomiting. No rectal bleeding or melena. PAST MEDICAL HISTORY: Significant for alcoholic cirrhosis of the liver, history of heavy alcohol abuse, chronic hepatitis C infection in the past, hypertension, COPD, recent admission for hepatic encephalopathy. PAST SURGICAL HISTORY: Right hand fracture, right elbow fracture, EGD and colonoscopy. PAST FAMILY HISTORY: Father coronary artery disease. Mother cancer and coronary artery disease. MEDICATIONS: At home, Zestril, Prilosec, lactulose, Claritin, Norvasc. ALLERGIES: None. REVIEW OF SYSTEMS: CARDIOPULMONARY: He denies any chest pain or shortness of breath. GENITOURINARY: He denies any symptoms. NEUROLOGY: He is slightly confused but overall answering questions appropriately. PSYCHIATRIC unremarkable. ENT/vision unremarkable. CONSTITUTIONAL: No recent weight loss. No fever, chills, night sweats. HEMATOLOGY unremarkable. ENDOCRINE unremarkable. PHYSICAL EXAMINATION: He appears comfortable. No apparent distress. Vital signs are stable. Blood pressure is 165/102, pulse rate of 57, temperature 97. HEENT examination unremarkable. Conjunctivae pink. Sclerae anicteric. Oral cavity no lesions. NECK: No JVD or lymph node enlargement. CHEST: Clear to auscultation. HEART: Regular rate and rhythm. ABDOMEN: Soft. Bowel sounds are positive. No organomegaly. EXTREMITIES: No pedal edema. SKIN no rashes. NEUROLOGIC: Awake, oriented to name and place, not to time. LABS: WBC is 4.4, hemoglobin 13.2, platelets are 144. Basic metabolic panel is within normal limits. AST 55, ALT 32, alkaline phosphatase 169, albumin 3.2. IMPRESSION: 1. Altered mental status secondary to hepatic encephalopathy patient noted to have elevated ammonia at 106. 2. History of alcoholic liver disease with alcoholic cirrhosis of the liver. 3. History of chronic hepatitis C infection. RECOMMENDATIONS: 1. Start him on oral lactulose 30 mL q.6 hours and titrate that he has 3-4 soft bowel movements daily. 2. Add oral Xifaxan 550 mg twice daily. 3. Advance diet as tolerated. 4. Repeat ammonia in the morning. We will follow with you closely during this hospital stay. Thank you for this consultation. MMODL / IJN: [id number] /
[2019-04-24 05:34] VITALS: RESP 18
--- NOTE | 2019-04-24 08:15 | P.PN ---
Subjective Summary: Patient admitted with alteration in mental status, lethargy patient. Patient history of liver cirrhosis due to drinking hepatitis C. Found to have ammonia 109. He was started on lactulose and rifaximin. Next Interval history: She is doing much better this morning. He is much or awake and alert. He is able to follow commands and answer questions appropriately. His only complaint is that that the last couple weeks he's been having some shortness of breath, chest wheezing and cough with expectoration of yellowish sputum. On previous admission a few days ago CT of the chest shows some nonspecific infiltrates and at that time pulmonary service followed the patient. Patient been afebrile and his respiratory status otherwise stable. He has history of smoking and COPD. Otherwise he does not have any abdominal pain nausea or vomiting. His feeling hungry this morning Objective - Vital Signs Vital signs: Vital Signs Temp 97.6 F 04/24/19 05:00 Pulse 79 04/24/19 05:00 Resp 18 04/24/19 05:00 BP 165/84 04/24/19 05:00 Pulse Ox 95 04/24/19 05:00 Intake & Output 04/23/19 04/24/19 04/24/19 18:59 06:59 18:59 Intake Total 250 950 Balance 250 950 Weight 83.915 kg Intake: Oral 250 950 Other: # Voids 2 - Exam Vital Signs: I have reviewed the vital signs. GENERAL: no apparent distress, cooperative Eyes: PERRL, extraoculry movements intact, clear conjunctiva Head: : Atraumatic external nose and ears, oropharyngeal mucosa is moist without lesions or exudates Neck: Symmetric, trachea midline, No thyromegaly, no masses or neck vain pulsation, no neck rigidity CVS: +S1/S2, No murmurs or gallops. Peripheral pulses 2+ and equal in all ex tremities. RESP: Unlabored respiratory effort. Breath sounds are somewhat diminished he has few expiratory wheezes bilateral no crackles or rhonchi Abdomen: Bowel sounds present in all 4 quadrants, Soft to palpation, Nontender/Nondistended, No hepatosplenomegaly, no hernias or masses, no CVA tnderness Musculoskeletal: Extremities w/o deformity, No cyanosis or clubbing, no joint swelling Skin: Warm, Dry. No rashes or lesions Neuro: He is awake much less lethargic than yesterday his orientated now to time and place and to himself and other people which is different from yesterday; veterans service officer II-XII grossly intact, motor strenght 5/5 i upper and lower extremities, no clonus, patellar DTRs 2+ and sympetrical; no asterixis morning - Labs CBC & Chem 7: 04/23/19 10:05 04/23/19 10:05 Labs: Abnormal Lab Results - Last 24 Hours (Table) 04/23/19 04/23/19 04/23/19 Range/Units 10:05 10:05 10:05 RBC 3.73 L (4.30-5.90) m/uL Hct 38.4 L (39.0-53.0) % MCV 103.0 H (80.0-100.0) fL MCH 35.3 H (25.0-35.0) pg Plt Count 114 L (150-450) k/uL Chloride 109 H (98-107) mmol/L Alkaline Phosphatase 169 H (38-126) U/L Ammonia 106 H (<30) umol/L Albumin 3.2 L (3.5-5.0) g/dL Assessment and Plan Assessment: 1. Acute toxic metabolic encephalopathy due to hepatic encephalopathy No clinically obvious precipitants, although component of COPD exacerbation and dehydration could be contributing I do not see any clinical evidence of GI bleed or active infection Gastroenterology input appreciated Encourage activity, we'll obtain physical therapy 2. COPD with mild exacerbation This is going on for the last few weeks, no acute changes Respiratory status stable and he has been afebrile without any URI-like symptoms Bronchodilators, inhaled steroids and doxycycline given the complaint of increase in productive cough and purulent sputum 3. Liver cirrhosis and chronic hepatitis C history of drinking I don't feel the patient has any signs of withdrawals He has been in shelter and did not drink for last couple weeks No need for serial protocol at this time and we would like to avoid any sedating medications 4. L4 endplate fracture Patient is to wear brace when upright I do not see any braces in the room and we will need to inquire further about this We will try to obtain more information was which
[2019-04-24] MEDS: DOXYCYCLINE 100 MG CAP PO SCH ×2 (08:35→21:11)
[2019-04-24] MEDS: LACTULOSE 20 GM/30 ML CUP PO SCH ×4 (08:35→21:16)
[2019-04-24] MEDS: FLUTICASONE 50MCG/SPRAY NASAL 16GM EA NOSTRIL SCH (08:36)
[2019-04-24] MEDS: RIFAXIMIN 550 MG TABLET PO SCH ×2 (08:41→21:11)
[2019-04-24] MEDS ORDERED: PANTOPRAZOLE 40 MG/10 ML VIAL IV SCH (09:00)
[2019-04-24 09:14] LABS: Basophils # (A) 0.1 k/uL (0-0.2); Basophils % (A) 2 %; Eosinophils # (A) 0.3 k/uL (0-0.7); Eosinophils % (A) 5 %; HCT 38.9 % (39.0-53.0); HGB 12.9 gm/dL (13.0-17.5); Lymphocytes # (A) 0.9 k/uL (1.0-4.8); Lymphocytes % (A) 17 %; MCH 34.4 pg (25.0-35.0); MCHC 33.3 g/dL (31.0-37.0); MCV 103.3 fL (80.0-100.0); Macrocytosis Slight; Mean Platelet Volume 7.6; Monocytes # (A) 0.5 k/uL (0-1.0); Monocytes % (A) 10 %; Neutrophils # (A) 3.3 k/uL (1.3-7.7); Neutrophils % (A) 63 %; Platelet Count 130 k/uL (150-450); RBC 3.77 m/uL (4.30-5.90); RDW 14.2 % (11.5-15.5); WBC 5.3 k/uL (3.8-10.6)
[2019-04-24 09:29] LABS: ALT 29 U/L (4-49); AST 50 U/L (17-59); African American GFR (CKD) >90 (>60 ml/min/1.73 sqM); Albumin 2.8 g/dL (3.5-5.0); Alkaline Phosphatase 144 U/L (38-126); Anion Gap 9 mmol/L; Blood Urea Nitrogen 19 mg/dL (9-20); Calcium 8.9 mg/dL (8.4-10.2); Carbon Dioxide 19 mmol/L (22-30); Chloride 109 mmol/L (98-107); Glucose 169 mg/dL (74-99); Non-African American GFR(CKD) >90 (>60 ml/min/1.73 sqM); Potassium 3.5 mmol/L (3.5-5.1); Sodium 137 mmol/L (137-145); Total Bilirubin 1.6 mg/dL (0.2-1.3)
--- NOTE | 2019-04-24 10:29 | PN ---
PROGRESS NOTE DATE OF DICTATION: 04/24/2019 Patient is a 63-year-old pleasant white male with alcoholic cirrhosis of the liver admitted to the hospital with altered mental status and hepatic encephalopathy. He was started on oral lactulose yesterday as well as Xifaxan and repeat ammonia today is down to 61. Patient doing much better. He is more awake and alert today. He denies any symptoms. He states he had about 4 loose bowel movements yesterday. PHYSICAL EXAMINATION: On physical examination, appears comfortable, no apparent distress. Vital signs are stable. Blood pressure 165/84, pulse rate 79, temperature 97.6. HEENT: Examination unremarkable. Conjunctivae pink. Sclerae anicteric. Oral cavity, no lesions. NECK; No JVD or lymph node enlargement. CHEST: Clear to auscultation. HEART: Regular rate and rhythm. ABDOMEN: Soft. Bowel sounds are positive. No organomegaly. EXTREMITIES: No pedal edema. SKIN: Not rashes. NEURO: Alert and oriented x3. No focal deficits. LABS: WBC 5.3, hemoglobin 12.9, platelets 130. Ammonia is 61. ALT and AST are normal. T- bilirubin is 1.6. IMPRESSION: 1. Hepatic encephalopathy, gradually improving. Ammonia decreased to 61 today and he is doing better. Remains on lactulose and Xifaxan. 2. Alcoholic cirrhosis of the liver with gradual decompensation. 3. History of alcohol abuse in the past, presently has not been drinking for the last one year since he has been incarcerated. RECOMMENDATION: 1. Continue with lactulose 30 mL four times daily and titrate that he has 3 to 4 bowel movements daily. 2. Continue with the oral Xifaxan 550 mg twice daily. 3. Repeat ammonia in the morning and follow with you closely. Thank you for this consultation. MMODL / IJN: [id number] /
[2019-04-24] MEDS: IPRATROPIUM-ALBUTEROL 3 ML NEB INHALATION SCH ×2 (21:03→21:04)
[2019-04-24] MEDS: BUDESONIDE 0.5 MG/2 ML NEBU INHALATION SCH (21:04)
[2019-04-25 05:46] VITALS: BP 155/89; TEMP 97.5
[2019-04-25] MEDS: RIFAXIMIN 550 MG TABLET PO SCH (08:00)
[2019-04-25] MEDS: LACTULOSE 20 GM/30 ML CUP PO SCH (08:01)
[2019-04-25] MEDS: DOXYCYCLINE 100 MG CAP PO SCH (08:02)
[2019-04-25] MEDS: FLUTICASONE 50MCG/SPRAY NASAL 16GM EA NOSTRIL SCH (08:02)
--- NOTE | 2019-04-25 09:06 | PN ---
PROGRESS NOTE DATE OF DICTATION: April 25, 2019. REQUESTING PHYSICIAN: Dr. Magno Trevino. The patient is a 63-year-old pleasant white male with alcoholic cirrhosis of the liver, admitted to the hospital with hepatic encephalopathy and doing much better. Remains on lactulose 30 mL 4 times daily, had three soft bowel movements yesterday. He denies any abdominal pain. Reports no nausea, vomiting. No new symptoms. PHYSICAL EXAMINATION: Appears comfortable. No apparent distress. Vital signs stable. Blood pressure 155/89, pulse rate 70, temperature 97.5. HEENT examination unremarkable. Conjunctivae pink. Sclerae anicteric. Oral cavity no lesions. NECK: No JVD or lymph node enlargement. CHEST was clear to auscultation. HEART: Regular rate and rhythm. ABDOMEN: Soft. Bowel sounds are positive. No organomegaly. EXTREMITIES: No pedal edema. NEUROLOGIC: Alert and oriented x3. No focal deficits. LABS: Done yesterday, WBC 5.3, hemoglobin 12.9, platelets 130. Ammonia was down to 61. IMPRESSION: 1. Hepatic encephalopathy, improving. Ammonia has significantly improved to 61. Remains on lactulose and Xifaxan and doing much better. 2. Alcoholic cirrhosis of the liver. 3. History of heavy alcohol abuse, quit about a year ago. RECOMMENDATIONS: Repeat labs in the morning. If ammonia level is back to normal, he can be discharged home today with outpatient followup in 2 weeks. He will remain on lactulose 30 mL 4 times daily and I emphasized the importance of him having 3-4 soft bowel movements every day. Thank you for this consultation. MMNUNUL / VIVIN: [id number] /
[2019-04-25 09:46] LABS: Basophils # (A) 0.2 k/uL (0-0.2); Basophils % (A) 3 %; Eosinophils # (A) 0.4 k/uL (0-0.7); Eosinophils % (A) 7 %; HCT 43.5 % (39.0-53.0); HGB 14.2 gm/dL (13.0-17.5); Lymphocytes # (A) 1.5 k/uL (1.0-4.8); Lymphocytes % (A) 25 %; MCH 34.1 pg (25.0-35.0); MCHC 32.7 g/dL (31.0-37.0); MCV 104.3 fL (80.0-100.0); Macrocytosis Slight; Mean Platelet Volume 7.5; Monocytes # (A) 0.6 k/uL (0-1.0); Monocytes % (A) 9 %; Neutrophils # (A) 3.2 k/uL (1.3-7.7); Neutrophils % (A) 52 %; Platelet Count 144 k/uL (150-450); RBC 4.17 m/uL (4.30-5.90); WBC 6.1 k/uL (3.8-10.6)
[2019-04-25] MEDS: IPRATROPIUM-ALBUTEROL 3 ML NEB INHALATION SCH (09:47)
[2019-04-25] MEDS: BUDESONIDE 0.5 MG/2 ML NEBU INHALATION SCH (09:47)
[2019-04-25 09:51] VITALS: PULSE 80
[2019-04-25 09:52] LABS: ALT 44 U/L (4-49); AST 74 U/L (17-59); African American GFR (CKD) >90 (>60 ml/min/1.73 sqM); Albumin 3.4 g/dL (3.5-5.0); Alkaline Phosphatase 153 U/L (38-126); Anion Gap 8 mmol/L; Blood Urea Nitrogen 20 mg/dL (9-20); Calcium 9.5 mg/dL (8.4-10.2); Carbon Dioxide 25 mmol/L (22-30); Chloride 107 mmol/L (98-107); Glucose 142 mg/dL (74-99); Non-African American GFR(CKD) 87 (>60 ml/min/1.73 sqM); Potassium 3.8 mmol/L (3.5-5.1); Sodium 140 mmol/L (137-145); Total Bilirubin 2.2 mg/dL (0.2-1.3); Total Protein 6.9 g/dL (6.3-8.2)
--- NOTE | 2019-04-25 11:29 | P.DS ---
Providers Date of admission: 04/23/19 11:44 Attending physician: Magno Trevino MD Consults: 04/23/19 11:45 Consult Physician Urgent Consulting Provider: Mariluz Dodd Consult Reason/Comments: Hepatic encephalopathy Do you want consulting provider notified?: Yes Primary care physician: Stated None Hospital Course: Date of discharge: 04/25/2019 Reason for admission: Alteration in mental status Discharge diagnosis: 1. Hepatic encephalopathy 2. COPD exacerbation 3. Chronic hepatitis C 4. Alcoholic Liver cirrhosis 5. Lung nodules 6. Ascending aortic aneurysm Consultants: Dr. Dodd gastroenterology Studies and results: Ammonia: 106 CT brain: No acute findings. Sinusitis Please refer to MRI of the brain and CT of the chest results from previous admission, did not show showing chronic microvascular changes on MRI of the brain and lung nodules and ascending aortic aneurysm 4.[address] of the chest. This was performed previous admission Discharge medications: Medications include: Lactulose 30 g 4 times a day titrate to 3-4 loose bowel movements Rifaximin Advair Albuterol when necessary Doxycycline for 3 more days Flonase B12 tablets Continue home medications [facility] Stopped home medications: Lisinopril Reason for admission: This is a 63-year-old male who was transferred from local skilled nursing due to alteration in mental status in terms of confusion and lethargy. He was discharge from [facility] 3 days prior where he was diagnosed with hepatic encephalopathy and started on lactulose on discharge. Hospital course: Patient was started on lactulose and rifaximin with dramatic improvement in his mental status. On the day of discharge he is lethargy and confusion completely resolved and he was fully ambulatory in the room. During the admission it was detected that patient has sinusitis on the CAT scan and also on the exam he was having wheezing and nonproductive cough and appeared slightly out of breath due to resting dyspnea. He was afebrile and chest x-ray did not detect any new infiltrates. He was treated with inhaled corticosteroids Pulmicort nebulized, bronchodilators and doxycycline and Flonase for his sinusitis with significant improvement in hi s respiratory status. On day of discharge he did not have any dyspnea and on the physical exam he is wheezing has resolved. Disposition: Patient will discharge back to [facility] he has another 6 days. I had a lengthy with the patient regarding multiple medical problems detect here including lung nodules, aortic thoracic aneurysm, liver cirrhosis and hepatitis C and recommended him to contact his primary care physician to follow up on that. He is also to follow-up with gastroenterology in 2 weeks. Patient informed me that he used to follow with primary care physician here in the area but he couldn't remember the name but that he will be calling the office next week to schedule appointment. With his permission I also contacted his sister and updated her on the plan of care and need for close follow-up of above-mentioned problems. All of the recommendations and plan of care that she discuss was also documented in the right thing in the discharge paperwork. 45 minutes were spent on this discharge Plan - Discharge Summary Discharge Rx Participant: No New Discharge Prescriptions: New Fluticasone/Salmeterol [Advair 250-50 Diskus] 1 inhalation PO BID #1 inhaler Lactulose [Cephulac] 30 gm PO QID #250 ml Fluticasone Nasal [place] [Flonase Nasal [place]] 2 spray EA NOSTRIL DAILY 14 Days #1 spr Albuterol Inhaler [Ventolin Hfa Inhaler] 1 - 2 puff INHALATION RT-Q6H PRN #1 inhaler PRN Reason: Shortness Of Breath Or Wheezing Doxycycline [Vibramycin] 100 mg PO BID 3 Days #6 cap Rifaximin [Xifaxan] 550 mg PO BID #30 tablet amLODIPine [Norvasc] 5 mg PO DAILY #1 tab Cyanocobalamin [Vitamin B-12] 500 mcg PO DAILY #30 tablet Continue Omeprazole [PriLOSEC] 20 mg PO DAILY Discontinued Lisinopril [Zestril] 20 mg PO DAILY Lactulose 20 gm PO BID #1 bottle amLODIPine [Norvasc] 5 mg PO HS tab Loratadine [Claritin] 10 mg PO DAILY #30 tab Discharge Medication List Omeprazole [PriLOSEC] 20 mg PO DAILY 04/17/19 [History] Albuterol Inhaler [Ventolin Hfa Inhaler] 1 - 2 puff INHALATION RT-Q6H PRN #1 inhaler 04/25/19 [Rx] Cyanocobalamin [Vitamin B-12] 500 mcg PO DAILY #30 tablet 04/25/19 [Rx] Doxycycline [Vibramycin] 100 mg PO BID 3 Days #6 cap 04/25/19 [Rx] Fluticasone Nasal [place] [Flonase Nasal [place]] 2 spray EA NOSTRIL DAILY 14 Days #1 spr 04/25/19 [Rx] Fluticasone/Salmeterol [Advair 250-50 Diskus] 1 inhalation PO BID #1 inhaler 04/25/19 [Rx] Lactulose [Cephulac] 30 gm PO QID #250 ml 04/25/19 [Rx] Rifaximin [Xifaxan] 550 mg PO BID #30 tablet 04/25/19 [Rx] amLODIPine [Norvasc] 5 mg PO DAILY #1 tab 04/25/19 [Rx] Follow up Appointment(s)/Referral(s): Mariluz Dodd MD [STAFF PHYSICIAN] - 2 Weeks None,Stated [Primary Care Provider] - 1-2 days Patient Instructions/Handouts: Cirrhosis (DC), Rifaximin (By mouth), Hepatitis C (DC), Lactulose (By mouth), Thoracic Aortic Aneurysm (DC) Discharge Disposition: OTHER INSTITUTION NOT DEFINED Care Plan Goals (MU): 1. Taking medications as ordered 2. Follow-up with her primary care physician 3. You have aortic thoracic aneurysm detected on imaging on previous admission. Please follow-up with the primary care physician Nicholas Dunn for referral for cardiothoracic surgery evaluation 4. Discussed with the primary care physician about hepatitis C treatment
== END 2019-04-25 12:53 | disposition home or self-care (01) | DRG 442 ==
LOC: EC 09:55 → 6NMEDSUR 11:44
PROVIDERS: ADMIT Hospitalist; ATTEND Hospitalist
DX: K72.00 Acute and subacute hepatic failure without coma (principal); J44.1 Chronic obstructive pulmonary disease with (acute) exacerbation; K70.30 Alcoholic cirrhosis of liver without ascites; I71.2 Thoracic aortic aneurysm, without rupture; B18.2 Chronic viral hepatitis C; E86.0 Dehydration; F17.200 Nicotine dependence, unspecified, uncomplicated; I10 Essential (primary) hypertension; J32.9 Chronic sinusitis, unspecified; F10.21 Alcohol dependence, in remission; Z79.899 Other long term (current) drug therapy; Z87.11 Personal history of peptic ulcer disease; Z80.9 Family history of malignant neoplasm, unspecified; Z82.49 Family history of ischemic heart disease and other diseases of the circulatory system
CPT/HCPCS: 36415; 70450; 71046; 80053; 80306; 81003; 82009; 82140; 82550; 84484; 85025; 85610; 85730; 86780; 93005; 94640; 96372; 99285

== ENCOUNTER → 2019-05-06 | Outpatient (CLI) | payer BC ==
[2019-05-06 12:54] LABS: Basophils % (A) 1 %; Eosinophils # (A) 0.4 k/uL (0-0.7); Eosinophils % (A) 6 %; HCT 41.1 % (39.0-53.0); HGB 13.8 gm/dL (13.0-17.5); Lymphocytes % (A) 18 %; MCH 34.5 pg (25.0-35.0); MCHC 33.5 g/dL (31.0-37.0); MCV 102.9 fL (80.0-100.0); Macrocytosis Slight; Monocytes # (A) 0.6 k/uL (0-1.0); Monocytes % (A) 10 %; Neutrophils # (A) 3.5 k/uL (1.3-7.7); Neutrophils % (A) 62 %; Platelet Count 115 k/uL (150-450); RBC 3.99 m/uL (4.30-5.90); WBC 5.7 k/uL (3.8-10.6)
[2019-05-06 18:43] LABS: Albumin 3.6 g/dL (3.80-4.90); Albumin/Globulin Ratio 1.38 (1.60-3.17); Bilirubin, Conjugated 0.9 mg/dL (0.20-0.40); Bilirubin,Unconjugated 1.4 mg/dL; Globulin 2.6 g/dL (1.6-3.3); Total Bilirubin 2.3 mg/dL (0.2-1.2); Total Protein 6.2 g/dL (6.2-8.2)
== END | disposition home or self-care (01) ==
LOC: LABWHC1 11:45
PROVIDERS: ATTEND Family Medicine
DX: I10 Essential (primary) hypertension (principal); B89 Unspecified parasitic disease; Z79.899 Other long term (current) drug therapy
CPT/HCPCS: 36415; 80076; 82140; 85025

== ENCOUNTER 2019-08-21 18:39 | Inpatient (IN) | payer OTHER ==
[2019-08-21] MEDS ORDERED: ONDANSETRON 4 MG/2 ML VIAL IVP STA (19:01)
[2019-08-21] MEDS ORDERED: HYDROmorphone 1 MG/ML 1 ML SYRINGE IVP STA (19:01)
--- NOTE | 2019-08-21 19:11 | ED ---
Fall HPI - General Chief Complaint: Fall Stated Complaint: L Hip Pain Time Seen by Provider: 08/21/19 18:41 Source: patient, EMS Mode of arrival: EMS - History of Present Illness Initial Comments: 64-year-old male patient presents to the emergency department today for evaluation of left hip pain increased low back pain after experiencing a fall. Patient states just prior to arrival he was coming down the steps when he tripped and fell down approximately 3 stairs. Patient states he did land on the left hip and has been having increased pain to the area since. States he is unable to ambulate did have to call an ambulance to pick him up. Patient denies hitting his head or losing consciousness with injury. States he is having some mild neck discomfort. Denies radiation of pain down his arms. Denies numbness or tingling to his hands. Patient does take [place] home, states her last dose was early this morning. Patient denies any headache, chest pain, shortness of breath, dizziness, weakness, abdominal pain, nausea, vomiting, or difficulties with bowel movements or urination. - Related Data Home Medications Medication Instructions Recorded Confirmed Omeprazole [PriLOSEC] 20 mg PO DAILY 04/17/19 08/21/19 Albuterol Inhaler [Ventolin Hfa 2 puff INHALATION RT-Q6H PRN 08/21/19 08/21/19 Inhaler] Furosemide [Lasix] 40 mg PO DAILY 08/21/19 08/21/19 HYDROcodone/APAP 10-325MG [[place] 1 tab PO TID PRN 08/21/19 08/21/19 10-325] Potassium Chloride ER [K-Dur 20] 20 meq PO DAILY 08/21/19 08/21/19 Previous Rx's Medication Instructions Recorded Cyanocobalamin [Vitamin B-12] 500 mcg PO DAILY #30 tablet 04/25/19 amLODIPine [Norvasc] 5 mg PO DAILY #1 tab 04/25/19 Allergies Allergy/AdvReac Type Severity Reaction Status Date / Time No Known Allergies Allergy Verified 08/21/19 22:15 Review of Systems ROS Statement: Those systems with pertinent positive or pertinent negative responses have been documented in the HPI. ROS Other: All systems not noted in ROS Statement are negative. Past Medical History Past Medical History: Asthma, COPD, Hypertension, Liver Disease Additional Past Medical History / Comment(s): Pt recently admitted to [facility] on 04/17/19 with acute encephalopathy multifactoral d/t hepatic encephalopathy, possible weirnickes, thrombocytopenia, cholilithiasis, hypokalemia, pulmonary nodule, htn urgency, L4 subacute fracture. Other hx; Hepatitis C, ETOH abuse, chronic sinusitis, current R clavicular fracture. History of Any Multi-Drug Resistant Organisms: None Reported Past Surgical History: Orthopedic Surgery Additional Past Surgical History / Comment(s): ORIF R elbow, R hand fracture with surgery, bilateral clavicle surgery, EGD d/t bleeding ulcer, colonoscopy. Past Anesthesia/Blood Transfusion Reactions: No Reported Reaction Past Psychological History: No Psychological Hx Reported Smoking Status: Current every day smoker Past Alcohol Use History: Occasional Past Drug Use History: None Reported - Past Family History Father Family Medical History: Myocardial Infarction (MT) Additional Family Medical History / Comment(s): about 40 Mother Family Medical History: Cancer, Myocardial Infarction (MT) General Exam Limitations: no limitations General appearance: alert, in no apparent distress, other (This is a well- developed, well-nourished adult male patient in no acute distress. Vital signs upon presentation are temperature 99.3F) Eye exam: Present: normal appearance, PERRL, EOMI. Absent: scleral icterus, conjunctival injection, periorbital swelling ENT exam: Present: normal exam, normal oropharynx, mucous membranes moist Neck exam: Present: normal inspection, full ROM, other (Patient has mild posterior cervical tenderness over the mid cervical spine. He does have full range of motion. No bony step-off or deformity noted to for midline palpation.). Absent: tenderness, meningismus, lymphadenopathy Respiratory exam: Present: normal lung sounds bilaterally. Absent: respiratory distress, wheezes, rales, rhonchi, stridor Cardiovascular Exam: Present: regular rate, normal rhythm, normal heart sounds. Absent: systolic murmur, diastolic murmur, rubs, gallop, clicks GI/Abdominal exam: Present: soft, normal bowel sounds. Absent: distended, tenderness, guarding, rebound, rigid Extremities exam: Present: normal inspection, full ROM, normal capillary refill, other (There is mild shortening of the left leg. Skin to the legs is pink, warm, dry. Cap refills less than 3 seconds. Pedal and posttibial pulses are 2+ and equal bilaterally.). Absent: tenderness, pedal edema, joint swelling, calf tenderness Back exam: Present: normal inspection, vertebral tenderness (Lumbar tenderness) Neurological exam: Present: alert, oriented X3, CN II-XII intact Psychiatric exam: Present: normal affect, normal mood Skin exam: Present: warm, dry, intact, normal color. Absent: rash Course Vital Signs 08/21/19 08/21/19 08/21/19 18:43 19:10 19:17 Temperature 99.3 F Pulse Rate 78 73 Respiratory 18 18 Rate Blood Pressure 164/104 146/91 O2 Sat by Pulse 98 94 L Oximetry 08/21/19 08/21/19 08/21/19 19:32 21:12 22:22 Temperature 98.0 F Pulse Rate 79 64 72 Respiratory 16 18 16 Rate Blood Pressure 139/82 121/89 145/89 O2 Sat by Pulse 100 95 98 Oximetry Medical Decision Making - Medical Decision Making 64-year-old male patient presents to the emergency department today for evaluation of left hip pain after a fall. Physical examination did reveal lower back tenderness, left hip tenderness, and mild shortening of the left leg. No rotation. Patient was also reporting some mild neck pain. X-rays of the cervical spine, lumbosacral spine, and left hip and pelvis were obtained. There did appear to be worsening compression deformities to the lumbar spine as well as T12. Left hip and pelvis x-ray were negative. Cervical spine x-ray was negative. Patient was given pain medication upon reevaluation is still reporting significant pain to the hip, unable to move without significant discomfort. Did perform CT of the pelvis without contrast, this did reveal a acetabular chip fracture as well as a hairline fracture of the acetabulum. Patient will be admitted to the hospital for further evaluation by orthopedics. We will consult Jeremías Bauer for medical management. I did discuss findings and results with the patient, he is agreeable. - Lab Data Result diagrams: 08/21/19 22:15 08/21/19 22:15 Lab Results 08/21/19 08/21/19 08/21/19 Range/Units 22:15 22:15 22:15 WBC 4.4 (3.8-10.6) k/uL RBC 3.92 L (4.30-5.90) m/uL Hgb 13.1 (13.0-17.5) gm/dL Hct 40.7 (39.0-53.0) % MCV 103.9 H (80.0-100.0) fL MCH 33.5 (25.0-35.0) pg MCHC 32.2 (31.0-37.0) g/dL RDW 13.9 (11.5-15.5) % Plt Count 105 L (150-450) k/uL Neutrophils % 54 % Lymphocytes % 23 % Monocytes % 11 % Eosinophils % 9 % Basophils % 1 % Neutrophils # 2.3 (1.3-7.7) k/uL Lymphocytes # 1.0 (1.0-4.8) k/uL Monocytes # 0.5 (0-1.0) k/uL Eosinophils # 0.4 (0-0.7) k/uL Basophils # 0.1 (0-0.2) k/uL Macrocytosis Slight PT 12.4 H (9.0-12.0) sec INR 1.2 H (<1.2) APTT 30.7 H (22.0-30.0) sec Sodium (137-145) mmol/L Potassium (3.5-5.1) mmol/L Chloride (98-107) mmol/L Carbon Dioxide (22-30) mmol/L Anion Gap mmol/L BUN (9-20) mg/dL Creatinine (0.66-1.25) mg/dL Est GFR (CKD-EPI)AfAm (>60 ml/min/1.73 sqM) Est GFR (CKD-EPI)NonAf (>60 ml/min/1.73 sqM) Glucose (74-99) mg/dL Calcium (8.4-10.2) mg/dL Total Bilirubin (0.2-1.3) mg/dL AST (17-59) U/L ALT (4-49) U/L Alkaline Phosphatase (38-126) U/L Total Protein (6.3-8.2) g/dL Albumin (3.5-5.0) g/dL Blood Type O Positive Blood Type Recheck No Previous Record Bld Type Recheck Status CABO Indicated Antibody Screen NEGATIVE Spec Expiration Date 08/24/2019 - 231408/21/19 Range/Units 22:15 WBC (3.8-10.6) k/uL RBC (4.30-5.90) m/uL Hgb (13.0-17.5) gm/dL Hct (39.0-53.0) % MCV (80.0-100.0) fL MCH (25.0-35.0) pg MCHC (31.0-37.0) g/dL RDW (11.5-15.5) % Plt Count (150-450) k/uL Neutrophils % % Lymphocytes % % Monocytes % % Eosinophils % % Basophils % % Neutrophils # (1.3-7.7) k/uL Lymphocytes # (1.0-4.8) k/uL Monocytes # (0-1.0) k/uL Eosinophils # (0-0.7) k/uL Basophils # (0-0.2) k/uL Macrocytosis PT (9.0-12.0) sec INR (<1.2) APTT (22.0-30.0) sec Sodium 138 (137-145) mmol/L Potassium 3.5 (3.5-5.1) mmol/L Chloride 106 (98-107) mmol/L Carbon Dioxide 30 (22-30) mmol/L Anion Gap 2 mmol/L BUN 14 (9-20) mg/dL Creatinine 0.82 (0.66-1.25) mg/dL Est GFR (CKD-EPI)AfAm >90 (>60 ml/min/1.73 sqM) Est GFR (CKD-EPI)NonAf >90 (>60 ml/min/1.73 sqM) Glucose 98 (74-99) mg/dL Calcium 8.6 (8.4-10.2) mg/dL Total Bilirubin 1.9 H (0.2-1.3) mg/dL AST 38 (17-59) U/L ALT 18 (4-49) U/L Alkaline Phosphatase 121 (38-126) U/L Total Protein 6.0 L (6.3-8.2) g/dL Albumin 3.1 L (3.5-5.0) g/dL Blood Type Blood Type Recheck Bld Type Recheck Status Antibody Screen Spec Expiration Date - Radiology Data Radiology results: report reviewed, image reviewed X-ray of the left hip and pelvis was obtained. Report is reviewed in its entirety. Impression by Dr. Zarco shows no acute abnormality of the pelvis and left hip. 3 views of the lumbar spine are obtained. Report is reviewed in its entirety. Impression by Dr. Zarco shows multiple lumbar compression fractures with progression to L5 and L2 and L1 compared to old computed tomography scan at 04/17/2019. Osteoporosis. CT brain and C-spine without contrast was obtained. Report was reviewed in its entirety. Impression by Dr. Zarco shows minor degenerative changes at the cervical spine. No fracture. Triple atrophy. White matter changes right posterior parietal lobe shows some progression compared to old exam. This is consistent with chronic small vessel ischemia. No evidence of acute intracranial traumatic injury. Extensive sinusitis that is mostly new compared to old exam. Nasal bone fracture. Age is not clear. Chronic bilateral mastoi ditis. Right-sided otitis. CT of the pelvis without contrast was obtained. Report was reviewed in its entirety. Impression by Dr. Zarco shows nondisplaced anterior left acetabular chip fracture. Fragment measures 13 x 13 mm. Addendum was made shows a hairline nondisplaced fracture through the medial wall the left acetabulum. Disposition Clinical Impression: Left acetabular fracture, Lumbar compression fracture, T12 compression fracture, Fall Disposition: ADMITTED IP TO THIS [facility] Condition: Serious Referrals: Jeremías Bauer MD [Primary Care Provider] - 1-2 days Decision to Admit Reason: Admit from EC Decision Date: 08/21/19 Decision Time: 22:01
--- NOTE | 2019-08-21 19:21 | XR ---
EXAMINATION TYPE: XR Hip LT and AP Pelvis DATE OF EXAM: 08/21/2019 COMPARISON: None HISTORY: Fall. Pain. TECHNIQUE: 3 views FINDINGS: The pelvic ring is intact. Proximal left femur and hip joint appear intact. There is no sig n of hip dysplasia. Hip joint spaces are fairly normal. Sacroiliac joints are intact. IMPRESSION: No acute abnormality of the pelvis and left hip.
--- NOTE | 2019-08-21 19:26 | XR ---
EXAMINATION TYPE: XR lumbar spine 2 or 3V DATE OF EXAM: 08/21/2019 COMPARISON: NONE HISTORY: Pain. Fall. TECHNIQUE: 3 views FINDINGS: There is some osteopenia. There is compression deformity of all the lumbar vertebra up to 4 0%. There is also 40% wedging of T12. Vertebra have normal alignment. Sacroiliac joints are intact. T here is rounded calcification over the right upper quadrant that is probably calcified gallstones. IMPRESSION: Multiple lumbar compression fractures with progression at L5 and L2 and L1 compared to ol d CT scan of 04/17/2019. Osteoporosis.
--- NOTE | 2019-08-21 19:33 | CT ---
EXAMINATION TYPE: CT brain cspine wo con DATE OF EXAM: 08/21/2019 COMPARISON: 04/23/2019 MS brain HISTORY: fall Headache. Neck pain. CT DLP: 1498.7 mGycm Automated exposure control for dose reduction was used. There is cerebral cortical atrophy. There is no mass effect nor midline shift. There is no sign of in tracranial hemorrhage. There is 4 cm area of white matter hypodensity right posterior parietal lobe. The calvarium is intact. There is extensive mucosal thickening in the ethmoid sinus and nasopharynx. There is some bilateral maxillary sinus mucosal thickening. There is right frontal sinus mucosal thic kening. Cervical vertebra have normal alignment. Disc spaces are fairly normal. Posterior elements are intact . There is minimal cervical facet arthropathy. The skull base is intact. There is very little pneumat ization of the temporal bones. There is deformity of the nasal bone consistent with acute fracture di splaced slightly to the left side. There is opacification of the epitympanic recess on the right side . IMPRESSION: Minor degenerative changes in the cervical spine. No fracture. Cerebral atrophy. White matter changes right posterior parietal lobe show some progression compared t o old exam. This is consistent with chronic small vessel ischemia. No evidence of acute intracranial traumatic injury. Extensive sinusitis that is mostly new compared to old exam. Nasal bone fracture. Age is not clear. Chronic bilateral mastoiditis. Right side otitis.
--- NOTE | 2019-08-21 21:30 | CT ---
EXAMINATION TYPE: CT pelvis wo con DATE OF EXAM: 08/21/2019 COMPARISON: None HISTORY: left hip pain following fall CT DLP: 425.8 mGycm Automated exposure control for dose reduction was used. Multiple axial sections were obtained from the iliac crest to the subtrochanteric femurs without cont rast. Sacroiliac joints appear normal. Sacrum is intact. The acetabula appear intact. There is osteopenia. There is compression deformity of L4 and L5 vertebral bodies up to 25%. The proximal femurs are intac t. There is a lucent line through the anterior left acetabulum consistent with nondisplaced acetabula r chip fracture. There is no free fluid in the pelvis. Bladder distends smoothly. There is no sign of a pelvic mass. IMPRESSION: Nondisplaced anterior left acetabular chip fracture. Fragment measures 13 x 13 mm.
[2019-08-21] MEDS ORDERED: NALOXONE 0.4 MG/ML 1 ML VIAL IV PRN (21:58)
[2019-08-21] MEDS ORDERED: ONDANSETRON 4 MG/2 ML VIAL IVP PRN (21:58)
[2019-08-21] MEDS ORDERED: ACETAMINOPHEN TAB 325 MG TAB PO PRN (21:58)
[2019-08-21] MEDS: SODIUM CHLORIDE 0.9% 1,000 ML IV SCH (22:32)
[2019-08-21 22:38] LABS: ALT 18 U/L (4-49); AST 38 U/L (17-59); African American GFR (CKD) >90 (>60 ml/min/1.73 sqM); Albumin 3.1 g/dL (3.5-5.0); Alkaline Phosphatase 121 U/L (38-126); Anion Gap 2 mmol/L; Blood Urea Nitrogen 14 mg/dL (9-20); Calcium 8.6 mg/dL (8.4-10.2); Carbon Dioxide 30 mmol/L (22-30); Chloride 106 mmol/L (98-107); Glucose 98 mg/dL (74-99); INR 1.2 (<1.2); Non-African American GFR(CKD) >90 (>60 ml/min/1.73 sqM); Partial Thromboplastin Time 30.7 sec (22.0-30.0); Potassium 3.5 mmol/L (3.5-5.1); Prothrombin Time 12.4 sec (9.0-12.0); Sodium 138 mmol/L (137-145); Total Bilirubin 1.9 mg/dL (0.2-1.3)
[2019-08-21 22:44] LABS: Basophils # (A) 0.1 k/uL (0-0.2); Basophils % (A) 1 %; Eosinophils # (A) 0.4 k/uL (0-0.7); Eosinophils % (A) 9 %; HCT 40.7 % (39.0-53.0); HGB 13.1 gm/dL (13.0-17.5); Lymphocytes % (A) 23 %; MCH 33.5 pg (25.0-35.0); MCHC 32.2 g/dL (31.0-37.0); MCV 103.9 fL (80.0-100.0); Macrocytosis Slight; Mean Platelet Volume 7.8; Monocytes # (A) 0.5 k/uL (0-1.0); Monocytes % (A) 11 %; Neutrophils # (A) 2.3 k/uL (1.3-7.7); Neutrophils % (A) 54 %; Platelet Count 105 k/uL (150-450); RBC 3.92 m/uL (4.30-5.90); RDW 13.9 % (11.5-15.5); WBC 4.4 k/uL (3.8-10.6)
[2019-08-21] MEDS: HYDROmorphone 1 MG/ML 1 ML SYRINGE IVP PRN (23:45)
[2019-08-21] MEDS ORDERED: TRIMETHOBENZAMIDE 100 MG/ML 2 ML VIAL IM PRN (23:53)
[2019-08-21] MEDS ORDERED: TRIMETHOBENZAMIDE 100 MG/ML 2 ML VIAL IM STA (23:53)
[2019-08-22] MEDS: HYDROmorphone 1 MG/ML 1 ML SYRINGE IVP PRN ×4 (05:24→21:34)
--- NOTE | 2019-08-22 07:51 | XR ---
EXAMINATION TYPE: XR chest 1V DATE OF EXAM: 08/22/2019 HISTORY: Pre surgical. REFERENCE: Previous study dated 04/23/2019. FINDINGS: There has been previous internal fixation of both clavicles. Lungs are overinflated. Heart size upper limits of normal. Lungs appear clear. Pleural space are rhona r. Note is made of multiple healed left-sided rib fractures. IMPRESSION: 1. COPD. 2. BORDERLINE CARDIOMEGALY. 3. EVIDENCE OF PREVIOUS TRAUMA.
[2019-08-22] MEDS: IPRATROPIUM-ALBUTEROL 3 ML NEB INHALATION SCH ×3 (09:15→19:26)
[2019-08-22] MEDS: CYANOCOBALAMIN 500 MCG TAB PO SCH (10:53)
[2019-08-22] MEDS: amLODIPine 5 MG TAB PO SCH (10:53)
[2019-08-22] MEDS: PANTOPRAZOLE 40 MG TABLET PO SCH (10:53)
[2019-08-22] MEDS: FUROSEMIDE 40 MG TAB PO SCH (10:53)
[2019-08-22] MEDS: POTASSIUM CHLORIDE ER 20 MEQ TAB.ER PO SCH (10:54)
--- NOTE | 2019-08-22 10:58 | P.HPOR ---
History of Present Illness H&P Date: 08/22/19 Chief Complaint: Left hip pain status post fall Patient is a 64-year-old male who had sustained a fall yesterday and fell down 2 or 3 stairs. He says he fell down his left hip and has had significant pain and presented to the emergency room. Patient says that he is a regular drinker and drinks at least a pint of day of hard alcohol. He says he has had multiple injuries and broken nearly all the bones of his body due to falls and accidents. 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 In April he had sustained another fall and had a new compression fracture and was being treated effectively with an LSO brace with Dr. Bauer his primary care physician. He says that this new pain from this fall is different than his pain from his back. He denies any numbness tingling his lower extremities. He says he has a bad knee gives way. He denies any changes in bowel bladder function. Denies any headaches or loss of consciousness. Review of Systems As stated per HPI. He denies specific problems in his left hip in the past. He says he has significant pain at that his bilateral knees worse on the left than the right. He says he has significant pain in his lower back due to multiple fractures. He is being actively treated with an LSO brace for his low back for a fracture that occurred a few months ago. He denies any fevers or chills. He denies any chest pain or shortness of breath. Denies any loss of consciousness. Past Medical History Past Medical History: Asthma, COPD, Hypertension, Liver Disease Additional Past Medical History / Comment(s): Pt recently admitted to [facility] on 04/17/19 with acute encephalopathy multifactoral d/t hepatic encephalopathy, possible weirnickes, thrombocytopenia, cholilithiasis, hypokalemia, pulmonary nodule, htn urgency, L4 subacute fracture. Other hx; Hepatitis C, ETOH abuse, chronic sinusitis, current R clavicular fracture. History of Any Multi-Drug Resistant Organisms: None Reported Past Surgical History: Orthopedic Surgery Additional Past Surgical History / Comment(s): ORIF R elbow, R hand fracture wit h surgery, bilateral clavicle surgery, EGD d/t bleeding ulcer, colonoscopy. Past Anesthesia/Blood Transfusion Reactions: No Reported Reaction Past Psychological History: No Psychological Hx Reported Additional Psychological History / Comment(s): Out of assisted May 01 2019. He uses a cane. He is suppose to wear a LSO brace but states he has not been wearing it. Smoking Status: Current every day smoker Past Alcohol Use History: Abuse, Heavy Additional Past Alcohol Use History / Comment(s): Pt started smoking as a young adult and was a heavier smoker but is now down to 4 cigarettes a day. He has hx of alcohol abuse-drank 1/5 liqour per day for much of his life. States he last drank friday. Drinks 1/5 of Rum daily. Past Drug Use History: None Reported - Past Family History Father Family Medical History: Myocardial Infarction (NH) Additional Family Medical History / Comment(s): about 40 Mother Family Medical History: Cancer, Myocardial Infarction (NH) Medications and Allergies Home Medications Medication Instructions Recorded Confirmed Type Omeprazole [PriLOSEC] 20 mg PO DAILY 04/17/19 08/21/19 History Cyanocobalamin [Vitamin B-12] 500 mcg PO DAILY #30 tablet 04/25/19 08/21/19 Rx amLODIPine [Norvasc] 5 mg PO DAILY #1 tab 04/25/19 08/21/19 Rx Albuterol Inhaler [Ventolin Hfa 2 puff INHALATION RT-Q6H PRN 08/21/19 08/21/19 History Inhaler] Furosemide [Lasix] 40 mg PO DAILY 08/21/19 08/21/19 History HYDROcodone/APAP 10-325MG [Rollins 1 tab PO TID PRN 08/21/19 08/21/19 History 10-325] Potassium Chloride ER [K-Dur 20] 20 meq PO DAILY 08/21/19 08/21/19 History Allergies Allergy/AdvReac Type Severity Reaction Status Date / Time No Known Allergies Allergy Verified 08/21/19 22:15 Physical Examination Osteopathic Statement: *. No significant issues noted on an osteopathic structural exam other than those noted in the History and Physical/Consult. - Hip left Gait: other Tenderness with palpation: lateral (The patient has significant pain around his left leg. His pain in his knee without crepitus. He denies any new pain at his left knee. There is no significant pain with gentle internal/external rotation at his hip. He has no significant pain in his hip with very gentle flexion. He has tenderness to palpation laterally and anteriorly at his hip. His comp artments are soft. He has sustained dorsal flexion plantar flexion and EHL intact bilaterally. His abdomen soft nontender. Chest has good excursion deep inspiration and expiration his arms have adequate active and passive range of motion. His neck is nontender to palpation his low back nontender to palpation but he does have some soreness at his back when he tries to move in bed. He has an LSO brace at his bedside.) Results - Labs Labs: Abnormal Lab Results - Last 24 Hours (Table) 08/21/19 08/21/19 08/21/19 Range/Units 22:15 22:15 22:15 RBC 3.92 L (4.30-5.90) m/uL MCV 103.9 H (80.0-100.0) fL Plt Count 105 L (150-450) k/uL PT 12.4 H (9.0-12.0) sec INR 1.2 H (<1.2) APTT 30.7 H (22.0-30.0) sec Total Bilirubin 1.9 H (0.2-1.3) mg/dL Total Protein 6.0 L (6.3-8.2) g/dL Albumin 3.1 L (3.5-5.0) g/dL H & H 08/21/19 Range/Units 22:15 Hgb 13.1 (13.0-17.5) gm/dL Hct 40.7 (39.0-53.0) % Coagulation 08/21/19 Range/Units 22:15 INR 1.2 H (<1.2) Result Diagrams: 08/21/19 22:15 08/21/19 22:15 - Diagnostic results Hip x-ray: report reviewed, image reviewed Hip CT: report reviewed, image reviewed (I reviewed the x-rays and the computed tomography scan of the hip and pelvis. There may be a small hairline fracture at the anterior lip of the acetabulum extending through the medial wall. There is no significant displacement or cortical disruption. There is no evidence of dislocation. There is no evidence of new fracture at the femur.) Assessment and Plan Assessment: New acute left hip acetabulum fracture nondisplaced and neurologically intact Chronic lumbar compression fractures L1 L2 L3 L4-L5 currently being managed with LSO. History of multiple falls History of EtOH abuse Plan: New acute left hip acetabulum fracture nondisplaced and neurologically intact Chronic lumbar compression fractures L1 L2 L3 L4-L5 currently being managed with LSO. History of multiple falls History of EtOH abuse The patient has a new acetabular fracture due to an acute fall. It is nondisplaced and appears to be stable and should do quite well without any surgical intervention. I do not see any instability at the proximal femur. I think it is okay for the patient to start to mobilize nonweightbearing on left lower extremity. We will have therapy see him to start his mobilization as he can remain nonweightbearing on left lower extremity to allow conservative management for the acetabular fracture to heal. It is okay to do gentle range of motion exercises at his left hip and knee. Subacute and chronic vertebral compression fractures appear to be stable. He should continue to use his LSO brace as prescribed by his primary care physician whenever he is out of bed. The patient has improved comfort today in Hospital. He does have history of EtOH abuse and we'll monitor him for signs of withdrawal. Medicine is seeing him as well. I do not have any plans from an orthopedic standpoint for surgical intervention for his left hip. Once he is stable with his mobilization and transfers and gait training with physical therapy and maintaining a nonweightbearing status for the left hip it is okay for him to be discharged back to home. I discussed this with him and he is hopeful to go home in the next 1-2 days. Will have shelter case manager to him as well. Time with Patient: Greater than 30
[2019-08-22] MEDS ORDERED: ALPRAZolam 1 MG TAB PO PRN (12:01)
[2019-08-22] MEDS: SODIUM CHLORIDE 0.9% 1,000 ML IV SCH (17:42)
[2019-08-22] MEDS: HYDROcodone/APAP 10-325MG 1 EACH TAB PO PRN (17:43)
[2019-08-23] MEDS: ALBUTEROL NEBULIZED 2.5 MG/3 ML INHALATION PRN (00:32)
[2019-08-23] MEDS: HYDROcodone/APAP 10-325MG 1 EACH TAB PO PRN (03:39)
--- NOTE | 2019-08-23 05:59 | CONS ---
CONSULTATION This 64-year-old white male fell down 2 or 3 stairs. He had new compression fracture, treated with LSO brace. He is found to have a pelvic acetabular fracture. PAST MEDICAL HISTORY: Asthma, COPD, liver disease, hypertension, hepatic encephalopathy, Wernicke, alcohol abuse, hepatitis C. He has had ORIF of his right elbow, right hand fracture with surgery, clavicle surgery, EGD, colonoscopy. FAMILY HISTORY: Father myocardial infarction. Mother cancer, myocardial infarction. HOME MEDICINES: 1. Prilosec. 2. B12. 3. Norvasc. 4. Ventolin HFA. 5. Lasix. 6. Providence. 7. K-Dur. ALLERGIES: No known drug allergies. This hip shows some tenderness deep into his back, hip area. Labs reviewed. X-rays reviewed. Pelvic acetabular fracture. Multiple regular medical problems. Continue home medications. PT OT. Prognosis guarded. MMODL / IJN: [id number] /
[2019-08-23] MEDS: IPRATROPIUM-ALBUTEROL 3 ML NEB INHALATION SCH ×4 (07:40→19:35)
[2019-08-23] MEDS: amLODIPine 5 MG TAB PO SCH (08:38)
[2019-08-23] MEDS: FUROSEMIDE 40 MG TAB PO SCH (08:38)
[2019-08-23] MEDS: POTASSIUM CHLORIDE ER 20 MEQ TAB.ER PO SCH (08:38)
[2019-08-23] MEDS: CYANOCOBALAMIN 500 MCG TAB PO SCH (08:38)
[2019-08-23] MEDS: PANTOPRAZOLE 40 MG TABLET PO SCH (08:38)
--- NOTE | 2019-08-23 10:25 | P.PN ---
Progress Note - Text Progress Note Date: 08/23/19 Orthopedics: History of Present Illness: Patient is a pleasant 64-year-old male who is seen and examined at bedside for follow-up evaluation for his acute left acetabular fracture and left hip pain. He continues to have pain at his left hip. He has difficulty with any mobility of his left hip. He was able to work with physical therapy today and has remained nonweightbearing on the left lower extremity. He does not feel he'll be able to manage his mobility at home. They're planning for discharge to [facility] rehabilitation facility as early as tomorrow, 08/24/2019. Case management is working on placement. Patient is also known have subacute to chronic compression fracture deformities of his lumbar spine he continues wear his LSO brace as prescribed by his primary care provider. Patient denies any new complaints at the bedside today. Patient does have a history of multiple falls and alcohol abuse. He is not currently exhibiting any withdrawal symptoms. Medical history also includes COPD, hypertension, liver disease, and asthma. Physical Exam: Patient is awake, alert, and oriented 3 Vital signs stable Good chest excursion with deep inspiration and expiration No signs or symptoms of DVT; no calf pain bilaterally Dorsiflexion, plantarflexion, and extensor hallucis longus positive sustained bilateral lower extremities No pain with internal and external rotation of the right hip Today the bedside he experiences increased pain with internal or external rotation of the left hip Patient is unable to perform any active range of motion of left hip due to pain Pain with palpation over the anterior and lateral left hip Compartments are soft Patient is currently lying in bed with his LSO brace intact Assessment: Acute traumatic left acetabular nondisplaced fracture status post fall Left hip pain Chronic compression fracture deformities at L1, L2, L3, L4, and L5 managed with LSO History of alcohol abuse History of multiple falls COPD Liver disease Hypertension Asthma asthma Plan: 1. We will continue conservative treatment in regards to his acute traumatic left hip acetabular nondisplaced fracture status post fall. He will remain nonweightbearing on the left lower extremity. He will continue work with physical therapy to increase mobility and ambulation. At this time we will plan work on obtaining approval for him to be discharged to a rehabilitation facility as early as tomorrow, 08/24/2019. Patient does not feel he'll be able to adequately manage at home and continues to have significant difficulty with mobility. 2. Patient will continue conservative treatment with LSO bracing for his chronic compression fracture deformities at L1, L2, L3, L4, and L5 3. Patient will continue be seeing him by medicine for his other medical diag noses including alcohol abuse. Patient not currently exhibiting any withdrawal symptoms.
[2019-08-23] MEDS: HYDROmorphone 1 MG/ML 1 ML SYRINGE IVP PRN ×2 (12:08→21:36)
[2019-08-23] MEDS: SODIUM CHLORIDE 0.9% 1,000 ML IV SCH (19:22)
[2019-08-24] MEDS: ALBUTEROL NEBULIZED 2.5 MG/3 ML INHALATION PRN (00:12)
[2019-08-24] MEDS: IPRATROPIUM-ALBUTEROL 3 ML NEB INHALATION SCH ×4 (07:14→19:20)
[2019-08-24] MEDS: amLODIPine 5 MG TAB PO SCH (09:10)
[2019-08-24] MEDS: PANTOPRAZOLE 40 MG TABLET PO SCH (09:10)
[2019-08-24] MEDS: CYANOCOBALAMIN 500 MCG TAB PO SCH (09:10)
[2019-08-24] MEDS: FUROSEMIDE 40 MG TAB PO SCH (09:10)
[2019-08-24] MEDS: POTASSIUM CHLORIDE ER 20 MEQ TAB.ER PO SCH (09:10)
[2019-08-24] MEDS: HYDROmorphone 1 MG/ML 1 ML SYRINGE IVP PRN (09:11)
[2019-08-24] MEDS: SODIUM CHLORIDE 0.9% 1,000 ML IV SCH (09:12)
--- NOTE | 2019-08-24 10:20 | P.DS ---
Providers Date of admission: 08/21/19 23:06 Expected date of discharge: 08/24/19 Attending physician: Ronny Espinoza Consults: 08/21/19 21:59 Consult Physician Routine Consulting Provider: Jeremías Bauer Consult Reason/Comments: Medical management Do you want consulting provider notified?: Yes Primary care physician: Jeremías Bauer - Discharge Diagnosis(es) (1) History of alcohol abuse Current Visit: Yes Status: Acute (2) Multiple falls Current Visit: Yes Status: Acute (3) COPD (chronic obstructive pulmonary disease) Current Visit: Yes Status: Acute (4) Hypertension Current Visit: Yes Status: Acute (5) Liver disease Current Visit: Yes Status: Acute (6) Asthma Current Visit: Yes Status: Acute (7) Fall Current Visit: Yes Status: Acute (8) Left acetabular fracture Current Visit: Yes Status: Acute (9) Lumbar compression fracture Current Visit: Yes Status: Acute Hospital Course: This is a pleasant 64-year-old male who presented with a acute traumatic left acetabular nondisplaced fracture status post fall. He does continue to have some pain and his left hip. He remains nonweightbearing on the left lower extremity. He has been working with physical therapy to increase his mobility and ambulation. He has had difficulty with mobility and ambulation and does not feel he can return home safely. We are currently planning for discharge to a rehabilitation facility. He has been approved by [facility]. Patient does feel he would be ready for discharge today. Patient also has a history of chronic compression fracture deformities at L1, L2, L3, L4, and L5 managed with an LSO brace. He has been following with his primary care provider in the outpatient setting. He does admit to brace provides some control the symptoms with increased activities. Patient has a history of alcohol abuse. He is not experiencing any alcohol withdrawal symptoms. Patient has been cleared for discharge from a medicine standpoint. Patient well be discharged to [facility]. Patient currently denies any nausea, vomiting, fever, or chills. Patient is eating and voiding freely without difficulty. We discuss ed he should remain nonweightbearing on the left lower extremity. He is encouraged to work with physical therapy to increase his mobility and ambulation prior to returning home from rehab. He may continue wearing his LSO brace as managed by his primary care provider for comfort support of this chronic compression fracture deformities at his lumbar spine. Patient is known to follow-up with Dr. Louis in the outpatient setting for pain control. He is under contract with Dr. Louis who does not come to the hospital to see patients. Patient will require a written prescription for narcotic pain medications while at [facility]. We discussed we will give a written prescription for 1 week. His medication will be controlled through the rehabilitation facility. Following discharge from the rehabilitation facility, he will plan to continue with Dr. Louis in the outpatient setting for pain control to his contract with him. MAPS has been reviewed today, 08/24/2019, with an Overall Overdose Risk Score of 230. An "Opiod Start Talking" Form has been signed by the patient and myself in place in the patient's chart. A prescription has been written for Meredith 10 mg/325 mg 1 tab every 6 hours as needed for pain, dispensed #28. Patient may continue with other previously prescribed home medications. Patient's past medical history includes alcohol abuse, multiple falls, COPD, hypertension, liver disease, and asthma. Physical Exam on day of discharge: Patient is awake, alert, and oriented 3 Vital signs stable Good chest excursion with deep inspiration and expiration No signs or symptoms of DVT; no calf pain bilaterally Dorsiflexion, plantarflexion, and extensor hallucis longus positive sustained bilateral lower extremities No pain with internal and external rotation of the right hip Today the bedside he experiences increased pain with internal or external rotation of the left hip Patient is unable to perform any active range of motion of left hip due to pain Pain with palpation over the anterior and lateral left hip Compartments are soft Patient is currently lying in bed with his LSO brace intact which is removed and reapplied during physical examination No significant pain with palpation along the midline of the lumbar spine or at the lumbosacral junction Inspection of the lumbar spine shows no significant bruising, erythema, sign of laceration, or obvious sign of infection Patient Condition at Discharge: Stable Plan - Discharge Summary Discharge Rx Participant: No New Discharge Prescriptions: New HYDROcodone/APAP 10-325MG [Meredith 10] 1 each PO Q6H PRN #28 tab PRN Reason: Pain Continue Omeprazole [PriLOSEC] 20 mg PO DAILY amLODIPine [Norvasc] 5 mg PO DAILY #1 tab Cyanocobalamin [Vitamin B-12] 500 mcg PO DAILY #30 tablet Potassium Chloride ER [K-Dur 20] 20 meq PO DAILY Furosemide [Lasix] 40 mg PO DAILY Albuterol Inhaler [Ventolin Hfa Inhaler] 2 puff INHALATION RT-Q6H PRN PRN Reason: Shortness Of Breath Discontinued HYDROcodone/APAP 10-325MG [Meredith 10-325] 1 tab PO TID PRN PRN Reason: Pain Discharge Medication List Omeprazole [PriLOSEC] 20 mg PO DAILY 04/17/19 [History] Cyanocobalamin [Vitamin B-12] 500 mcg PO DAILY #30 tablet 04/25/19 [Rx] amLODIPine [Norvasc] 5 mg PO DAILY #1 tab 04/25/19 [Rx] Albuterol Inhaler [Ventolin Hfa Inhaler] 2 puff INHALATION RT-Q6H PRN 08/21/19 [History] Furosemide [Lasix] 40 mg PO DAILY 08/21/19 [History] Potassium Chloride ER [K-Dur 20] 20 meq PO DAILY 08/21/19 [History] HYDROcodone/APAP 10-325MG [Meredith 10] 1 each PO Q6H PRN #28 tab 08/24/19 [Rx] Follow up Appointment(s)/Referral(s): Ronny Espinoza DO [Doctor of Osteopathic Medicine] - 1 Week Jeremías Bauer MD [Primary Care Provider] - 1-2 days Activity/Diet/Wound Care/Special Instructions: Nonweightbearing left lower extremity. Patient should use LSO brace when out of bed. Patient may do transfer training and may attempt and oblique nonweightbearing left lower extremity. When the patient is seated is okay for the leg and foot to rest on the floor. Discharge Disposition: TRANSFER TO SNF/ECF
[2019-08-24] MEDS: HYDROcodone/APAP 10-325MG 1 EACH TAB PO PRN (15:50)
[2019-08-24 21:18] VITALS: RESP 12
[2019-08-25 05:30] VITALS: BP 133/79; TEMP 98
[2019-08-25] MEDS: IPRATROPIUM-ALBUTEROL 3 ML NEB INHALATION SCH (06:53)
[2019-08-25 07:05] VITALS: PULSE 82
[2019-08-25] MEDS: amLODIPine 5 MG TAB PO SCH (08:20)
[2019-08-25] MEDS: PANTOPRAZOLE 40 MG TABLET PO SCH (08:20)
[2019-08-25] MEDS: CYANOCOBALAMIN 500 MCG TAB PO SCH (08:20)
[2019-08-25] MEDS: FUROSEMIDE 40 MG TAB PO SCH (08:20)
[2019-08-25] MEDS: POTASSIUM CHLORIDE ER 20 MEQ TAB.ER PO SCH (08:20)
[2019-08-25] MEDS: HYDROcodone/APAP 10-325MG 1 EACH TAB PO PRN (08:22)
== END 2019-08-25 10:35 | DRG 536 ==
LOC: EC 18:39 → 5NMEDONC 23:06
PROVIDERS: ADMIT Orthopaedic Surgery Orthopaedic Surgery of the Spine; ATTEND Orthopaedic Surgery Orthopaedic Surgery of the Spine
DX: S32.415A Nondisplaced fracture of anterior wall of left acetabulum, initial encounter for closed fracture (principal); M48.56XD Collapsed vertebra, not elsewhere classified, lumbar region, subsequent encounter for fracture with routine healing; F17.210 Nicotine dependence, cigarettes, uncomplicated; I10 Essential (primary) hypertension; J44.9 Chronic obstructive pulmonary disease, unspecified; B19.20 Unspecified viral hepatitis C without hepatic coma; R29.6 Repeated falls; F10.10 Alcohol abuse, uncomplicated; J32.9 Chronic sinusitis, unspecified; R26.9 Unspecified abnormalities of gait and mobility; R91.1 Solitary pulmonary nodule; M54.2 Cervicalgia; Z11.59 Encounter for screening for other viral diseases; Z79.899 Other long term (current) drug therapy; Z82.49 Family history of ischemic heart disease and other diseases of the circulatory system; Z80.9 Family history of malignant neoplasm, unspecified; W10.8XXA Fall (on) (from) other stairs and steps, initial encounter; Y92.9 Unspecified place or not applicable
CPT/HCPCS: 36415; 70450; 71045; 72100; 72125; 72192; 73502; 80053; 85025; 85610; 85730; 86850; 86900; 86901; 93005; 94640; 94760; 96374; 96375; 96376; 99285

== ENCOUNTER 2020-02-23 01:45 | Emergency (ER) | payer BC, OTHER ==
[2020-02-23] MEDS ORDERED: ONDANSETRON 4 MG/2 ML VIAL IVP STA (02:04)
[2020-02-23] MEDS ORDERED: HYDROmorphone 0.5 MG/0.5 ML SYRINGE IVP STA ×4 (02:13→08:07)
--- NOTE | 2020-02-23 02:15 | ED ---
Abdominal Pain HPI - General Chief Complaint: Abdominal Pain Stated Complaint: abd pain Time Seen by Provider: 02/23/20 02:04 Source: patient, EMS Mode of arrival: EMS - History of Present Illness Initial Comments: Patient is a 64-year-old man presenting to be evaluated for right upper quadrant pain. The patient states that he had eaten some old turkey a few hours prior to the onset and then he started having some mild pain and then nausea and vomiting. The patient denies any recent trauma. No fever or chills. No change in bowel movements. No change in urination. The pain does not go to the scrotum or testicles. No chest symptoms. No leg symptoms MD Complaint: abdominal pain Onset/Timin -: hour(s) Location: RUQ Radiation: none Severity: moderate Quality: cramping Consistency: constant Improves With: nothing Worsens With: nothing Associated Symptoms: nausea, vomiting - Related Data Home Medications Medication Instructions Recorded Confirmed Omeprazole [PriLOSEC] 20 mg PO DAILY 04/17/19 08/21/19 Albuterol Inhaler [Ventolin Hfa 2 puff INHALATION RT-Q6H PRN 08/21/19 08/21/19 Inhaler] Furosemide [Lasix] 40 mg PO DAILY 08/21/19 08/21/19 Potassium Chloride ER [K-Dur 20] 20 meq PO DAILY 08/21/19 08/21/19 Previous Rx's Medication Instructions Recorded Cyanocobalamin [Vitamin B-12] 500 mcg PO DAILY #30 tablet 04/25/19 amLODIPine [Norvasc] 5 mg PO DAILY #1 tab 04/25/19 HYDROcodone/APAP 10-325MG [[place] 1 each PO Q6H PRN #28 tab 08/24/19 10] Allergies Allergy/AdvReac Type Severity Reaction Status Date / Time No Known Allergies Allergy Verified 02/23/20 01:51 Review of Systems ROS Statement: Those systems with pertinent positive or pertinent negative responses have been documented in the HPI. ROS Other: All systems not noted in ROS Statement are negative. Constitutional: Denies: fever, chills Respiratory: Denies: cough, dyspnea Cardiovascular: Denies: chest pain, palpitations, edema Gastrointestinal: Reports: abdominal pain, nausea, vomiting. Denies: diarrhea, constipation, hematemesis, melena, hematochezia Genitourinary: Denies: dysuria, hematuria, testicular pain Musculoskeletal: Denies: back pain Skin: Denies: rash Neurological: Denies: headache, weakness, numbness Past Medical History Past Medical History: Asthma, COPD, Hypertension, Liver Disease Additional Past Medical History / Comment(s): Pt recently admitted to [facility] on 04/17/19 with acute encephalopathy multifactoral d/t hepatic encephalopathy, p ossible weirnickes, thrombocytopenia, cholilithiasis, hypokalemia, pulmonary nodule, htn urgency, L4 subacute fracture. Other hx; Hepatitis C, ETOH abuse, chronic sinusitis, current R clavicular fracture. History of Any Multi-Drug Resistant Organisms: None Reported Past Surgical History: Orthopedic Surgery Additional Past Surgical History / Comment(s): ORIF R elbow, R hand fracture with surgery, bilateral clavicle surgery, EGD d/t bleeding ulcer, colonoscopy. Past Anesthesia/Blood Transfusion Reactions: No Reported Reaction Past Psychological History: No Psychological Hx Reported Smoking Status: Current every day smoker Past Alcohol Use History: Abuse, Heavy Past Drug Use History: None Reported - Past Family History Father Family Medical History: Myocardial Infarction (SD) Additional Family Medical History / Comment(s): about 40 Mother Family Medical History: Cancer, Myocardial Infarction (SD) General Exam General appearance: alert, in no apparent distress Head exam: Present: atraumatic, normocephalic Eye exam: Present: normal appearance. Absent: scleral icterus, conjunctival injection ENT exam: Present: normal oropharynx Respiratory exam: Present: normal lung sounds bilaterally. Absent: respiratory distress, wheezes, rales, rhonchi, stridor Cardiovascular Exam: Present: regular rate, normal rhythm, normal heart sounds. Absent: systolic murmur, diastolic murmur, rubs, gallop GI/Abdominal exam: Present: soft, tenderness (Mild right upper quadrant tenderness without rebound or guarding). Absent: distended, guarding, rebound, rigid, mass, pulsatile mass, hernia Extremities exam: Present: normal inspection, normal capillary refill. Absent: pedal edema, calf tenderness Back exam: Present: normal inspection. Absent: CVA tenderness (R), CVA tenderness (L) Neurological exam: Present: alert Skin exam: Present: warm, dry, intact, normal color. Absent: rash Course Vital Signs 02/23/20 02/23/20 02/23/20 01:45 02:08 03:00 Temperature 97.1 F L Pulse Rate 94 83 90 Respiratory 16 16 16 Rate Blood Pressure 140/88 130/97 121/85 O2 Sat by Pulse 98 97 96 Oximetry 02/23/20 02/23/20 02/23/20 04:00 05:00 06:00 Temperature Pulse Rate 92 92 90 Respiratory 16 16 16 Rate Blood Pressure 111/81 112/83 119/84 O2 Sat by Pulse 96 95 Oximetry 02/23/20 08:00 Temperature 98.0 F Pulse Rate 89 Respiratory 18 Rate Blood Pressure 102/78 O2 Sat by Pulse 97 Oximetry Medical Decision Making - Medical Decision Making Patient is 64-year-old man right upper quadrant pain, since going found to have hematoma to anterior aspect of the liver. There is some active extravasation. Case is discussed with Dr. Villarreal covering surgery and he feels best managed by interventional radiology with no capability for that here. He did recommend [facility]. I discussed with patient to see if he had alternative preference for transfer and he would like to go to [facility]. - Lab Data Result diagrams: 02/23/20 02:06 02/23/20 02:06 Lab Results 02/23/20 02/23/20 02/23/20 Range/Units 02:06 02:06 02:06 WBC 4.9 (3.8-10.6) k/uL RBC 3.67 L (4.30-5.90) m/uL Hgb 13.2 (13.0-17.5) gm/dL Hct 40.1 (39.0-53.0) % MCV 109.3 H (80.0-100.0) fL MCH 36.0 H (25.0-35.0) pg MCHC 33.0 (31.0-37.0) g/dL RDW 14.4 (11.5-15.5) % Plt Count 100 L (150-450) k/uL MPV 8.2 Neutrophils % 46 % Lymphocytes % 37 % Monocytes % 9 % Eosinophils % 4 % Basophils % 2 % Neutrophils # 2.2 (1.3-7.7) k/uL Lymphocytes # 1.8 (1.0-4.8) k/uL Monocytes # 0.4 (0-1.0) k/uL Eosinophils # 0.2 (0-0.7) k/uL Basophils # 0.1 (0-0.2) k/uL Manual Slide Review Performed Polychromasia Present Poikilocytosis (manual Present Anisocytosis (manual) Present Macrocytosis Marked A PT (9.0-12.0) sec INR (<1.2) APTT (22.0-30.0) sec Sodium 135 L (137-145) mmol/L Potassium 3.1 L (3.5-5.1) mmol/L Chloride 102 (98-107) mmol/L Carbon Dioxide 29 (22-30) mmol/L Anion Gap 4 mmol/L BUN 11 (9-20) mg/dL Creatinine 1.08 (0.66-1.25) mg/dL Est GFR (CKD-EPI)AfAm 84 (>60 ml/min/1.73 sqM) Est GFR (CKD-EPI)NonAf 73 (>60 ml/min/1.73 sqM) Glucose 122 H (74-99) mg/dL Calcium 8.3 L (8.4-10.2) mg/dL Total Bilirubin 3.1 H (0.2-1.3) mg/dL AST 90 H (17-59) U/L ALT 28 (4-49) U/L Alkaline Phosphatase 127 H (38-126) U/L Total Protein 6.2 L (6.3-8.2) g/dL Albumin 3.1 L (3.5-5.0) g/dL Amylase 55 (30-110) U/L Lipase 201 (23-300) U/L Urine Color Yellow Urine Appearance Clear (Clear) Urine pH 6.0 (5.0-8.0) Ur Specific [place] 1.008 (1.001-1.035) Urine Protein Negative (Negative) Urine Glucose (UA) Negative (Negative) Urine Ketones Negative (Negative) Urine Blood Negative (Negative) Urine Nitrite Negative (Negative) Urine Bilirubin Negative (Negative) Urine Urobilinogen 4.0 (<2.0) mg/dL Ur Leukocyte Esterase Small H (Negative) Urine WBC 6 H (0-5) /hpf Urine Bacteria Many H (None) /hpf Urine Mucus Rare H (None) /hpf Coronavirus (PCR) (Not Detectd) Blood Type Blood Type Recheck Bld Type Recheck Status Antibody Screen Spec Expiration Date 02/23/20 02/23/20 02/23/20 Range/Units 06:50 06:50 07:45 WBC (3.8-10.6) k/uL RBC (4.30-5.90) m/uL Hgb (13.0-17.5) gm/dL Hct (39.0-53.0) % MCV (80.0-100.0) fL MCH (25.0-35.0) pg MCHC (31.0-37.0) g/dL RDW (11.5-15.5) % Plt Count (150-450) k/uL MPV Neutrophils % % Lymphocytes % % Monocytes % % Eosinophils % % Basophils % % Neutrophils # (1.3-7.7) k/uL Lymphocytes # (1.0-4.8) k/uL Monocytes # (0-1.0) k/uL Eosinophils # (0-0.7) k/uL Basophils # (0-0.2) k/uL Manual Slide Review Polychromasia Poikilocytosis (manual Anisocytosis (manual) Macrocytosis PT 14.4 H (9.0-12.0) sec INR 1.5 H (<1.2) APTT 29.8 (22.0-30.0) sec Sodium (137-145) mmol/L Potassium (3.5-5.1) mmol/L Chloride (98-107) mmol/L Carbon Dioxide (22-30) mmol/L Anion Gap mmol/L BUN (9-20) mg/dL Creatinine (0.66-1.25) mg/dL Est GFR (CKD-EPI)AfAm (>60 ml/min/1.73 sqM) Est GFR (CKD-EPI)NonAf (>60 ml/min/1.73 sqM) Glucose (74-99) mg/dL Calcium (8.4-10.2) mg/dL Total Bilirubin (0.2-1.3) mg/dL AST (17-59) U/L ALT (4-49) U/L Alkaline Phosphatase (38-126) U/L Total Protein (6.3-8.2) g/dL Albumin (3.5-5.0) g/dL Amylase (30-110) U/L Lipase (23-300) U/L Urine Color Urine Appearance (Clear) Urine pH (5.0-8.0) Ur Specific [place] (1.001-1.035) Urine Protein (Negative) Urine Glucose (UA) (Negative) Urine Ketones (Negative) Urine Blood (Negative) Urine Nitrite (Negative) Urine Bilirubin (Negative) Urine Urobilinogen (<2.0) mg/dL Ur Leukocyte Esterase (Negative) Urine WBC (0-5) /hpf Urine Bacteria (None) /hpf Urine Mucus (None) /hpf Coronavirus (PCR) Not Detected (Not Detectd) Blood Type O Positive Blood Type Recheck O Pos Bld Type Recheck Status No Antibody Screen NEGATIVE Spec Expiration Date 02/26/2020 - 2350 Critical Care Time Critical Care Time: Yes (40 minutes) Disposition Clinical Impression: Liver hematoma, Liver mass, Hypokalemia, Thrombocytopenia Disposition: OTHER INSTITUTION NOT DEFINED Condition: Serious Is patient prescribed a controlled substance at d/c from ED?: No Referrals: Jeremías Bauer MD [Primary Care Provider] - 1-2 days - Out of Hospital Transfer - Req. Specs Out of Hospital Transfer - Requested Specifics: Other Emergency Center
[2020-02-23 02:25] LABS: Calcium 8.3 mg/dL (8.4-10.2); Total Bilirubin 3.1 mg/dL (0.2-1.3)
--- NOTE | 2020-02-23 02:40 | XR ---
EXAM: XR Abdomen, 1 View CLINICAL HISTORY: ITS.REASON XR Reason: abdominal pain TECHNIQUE: Frontal supine view of the abdomen/pelvis. COMPARISON: Lumbar spine 08/21/2019 FINDINGS: Gastrointestinal tract: Nonspecific bowel gas pattern with minimal gas noted predominantly in the nondilated colon. There is some gas identified in the distal rectosigmoid colon and central pelvis. No significant stool burden. Abdominal Organs: There is a rounded calcific density, measuring 3.2 cm with a smaller adjacent calcification noted. These calcifications were present on the previous lumbar spine examination. Bones/joints: Interval vertebroplasty changes at L1 level. Chronic compression fractures of the lumbar spine noted at several levels. IMPRESSION: Nonspecific, nonobstructive bowel gas pattern noted on this single projection supine exam. Probable cholelithiasis, stable.
[2020-02-23 02:43] LABS: Basophils # (A) 0.1 k/uL (0-0.2); Basophils % (A) 2 %; Eosinophils # (A) 0.2 k/uL (0-0.7); Eosinophils % (A) 4 %; HCT 40.1 % (39.0-53.0); HGB 13.2 gm/dL (13.0-17.5); Lymphocytes # (A) 1.8 k/uL (1.0-4.8); Lymphocytes % (A) 37 %; MCV 109.3 fL (80.0-100.0); Macrocytosis Marked; Mean Platelet Volume 8.2; Monocytes # (A) 0.4 k/uL (0-1.0); Monocytes % (A) 9 %; Neutrophils # (A) 2.2 k/uL (1.3-7.7); Neutrophils % (A) 46 %; Platelet Count 100 k/uL (150-450); RBC 3.67 m/uL (4.30-5.90); RDW 14.4 % (11.5-15.5); WBC 4.9 k/uL (3.8-10.6)
[2020-02-23 02:47] LABS: Albumin 3.1 g/dL (3.5-5.0); Potassium 3.1 mmol/L (3.5-5.1); Total Protein 6.2 g/dL (6.3-8.2)
[2020-02-23 03:38] LABS: Anisocytosis (M) Present; Polychromasia Present
[2020-02-23 03:39] LABS: Poikilocytosis (M) Present
[2020-02-23 04:01] LABS: Appearance,Urine Clear (Clear); Bacteria,Urine Many /hpf; Bilirubin,Urine Negative (Negative); Blood,Urine Negative (Negative); Color,Urine Yellow; Glucose,Urine (UA) Negative (Negative); Ketones,Urine Negative (Negative); Leukocyte Esterase,Urine Small (Negative); Mucus,Urine Rare /hpf; Nitrite,Urine Negative (Negative); Protein,Urine Negative (Negative); Specific Gravity,Urine 1.008 (1.001-1.035); WBC,Urine 6 /hpf (0-5)
--- NOTE | 2020-02-23 05:01 | CT ---
EXAM: CT Abdomen and Pelvis Without Intravenous Contrast CLINICAL HISTORY: ITS.REASON CT Reason: acute RUQ abdominal pain TECHNIQUE: Axial computed tomography images of the abdomen and pelvis without intravenous contrast. CTDI is 10.27 mGy and DLP is 567.7 mGy-cm. This CT exam was performed using one or more of the following dose reduction techniques: automated exposure control, adjustment of the mA and/or kV according to patient size, and/or use of iterative reconstruction technique. COMPARISON: No relevant prior studies available. FINDINGS: Lung bases: Unremarkable. No mass. No consolidation. Heart: Mild cardiomegaly. Mediastinum: Hiatal hernia with the superior aspect of the stomach noted in the posterior mediastinum. ABDOMEN: Liver: There is an abnormal hyperdense collection along the anterior aspect of the right lobe of the liver extending into the right anterior abdomen, measuring up to 4 cm in thickness by 16.3 cm in transverse diameter by 9.1 cm in craniocaudal extent. There is also regional fat stranding and edema in the right upper quadrant. The liver is markedly irregular, atrophic in appearance with lobular contours. The hyperdense collection, either causes mass effect on the regional liver near the junction of segment 4 and the left lobe of the liver or arises from within the liver at this point. Gallbladder and bile ducts: Incidental gallstones noted in the gallbladder with the largest measuring 2.9 cm. No significant gallbladder dilatation. There is dilation of the common bile duct. However, no intrahepatic biliary dilatation identified. Pancreas: Unremarkable. No ductal dilation. Spleen: Unremarkable. No splenomegaly. Adrenals: Unremarkable. No mass. Kidneys and ureters: Incidental subcentimeter nephrolithiasis involving the inferior pole the right kidney. No hydronephrosis or obstructing ureteral stones noted bilaterally. Stomach and bowel: No evidence for high-grade bowel obstruction. Evaluation of the bowel is limited with ascites and lack of IV contrast. No mucosal thickening. PELVIS: Appendix: No findings to suggest acute appendicitis. Bladder: Unremarkable. No stones. Reproductive: Unremarkable as visualized. ABDOMEN and PELVIS: Intraperitoneal space: There is mild perihepatic free fluid and moderate free fluid in the perisplenic region. In addition, there is free fluid in the paracolic gutters and in the pelvis with some suggestion of layering hyperdense components. Bones/joints: Multilevel compression fractures throughout the lumbar spine with post-vertebroplasty changes at L1 level. Accentuated kyphosis at the thoracolumbar region. No acute osseous abnormality. No dislocation. Soft tissues: Unremarkable. Vasculature: Prominent splenorenal varicosities are noted in the left upper quadrant, consistent with portal hypertension. Evaluation for patency of the portal vein is not possible. No abdominal aortic aneurysm. Lymph nodes: Unremarkable. No enlarged lymph nodes. IMPRESSION: 1. There is an abnormal hyperdense collection along the anterior aspect of the right lobe of the liver extending into the right anterior abdomen, measuring up to 4 cm in thickness by 16.3 cm in transverse diameter by 9. 1 cm in craniocaudal extent. There is also regional fat stranding and edema in the right upper quadrant. Differential consideration includes an intra-abdominal hematoma which may extend from an abnormal mass lesion in the cirrhotic liver or simply be spontaneous hemorrhagic products in the abdomen adjacent to the liver. Evaluation is limited without contrast. 2. There is mild perihepatic free fluid and moderate free fluid in the perisplenic region. In addition, there is free fluid in the paracolic gutters and in the pelvis with some suggestion of layering hyperdense components. Findings are most consistent with more diffuse lysed hemorrhagic products/hematoperitoneum. No loculation. 3. Prominent splenorenal varicosities are noted in the left upper quadrant, consistent with portal hypertension. Evaluation for patency of the portal vein is not possible. 4. The liver is markedly irregular, atrophic in appearance with lobular contours. The hyperdense collection, either causes mass effect on the regional liver near the junction of segment 4 and the left lobe of the liver or arises from within the liver at this point. <MYCVCSECTION> Communications: 02/23/20 05:05 Call Doctor Regarding Above results, called Dr. Fuller on 02/22 05:05 (-05:00)
--- NOTE | 2020-02-23 06:25 | CT ---
EXAM: CT Abdomen and Pelvis With Intravenous Contrast CLINICAL HISTORY: ITS.REASON CT Reason: abdominal pain TECHNIQUE: Axial computed tomography images of the abdomen and pelvis with intravenous contrast. CTDI is 21.67 mGy and DLP is 919.4 mGy-cm. This CT exam was performed using one or more of the following dose reduction techniques: automated exposure control, adjustment of the mA and/or kV according to patient size, and/or use of iterative reconstruction technique. COMPARISON: Noncontrast examination performed earlier. FINDINGS: Lung bases: Unremarkable. No mass. No consolidation. Mediastinum: A hiatal hernia is identified with the superior stomach noted in the posterior mediastinum. ABDOMEN: Liver: The previously described abnormal hyperdensity is in the liver near the junction of segment 4 and the left lobe of the liver, now demonstrates enhancement (81 Hounsfield units from pre-contrast 53 Hounsfield units previously), consistent with an abnormal intrahepatic lesion, measuring 3.9 x 3.7 x 3.5 cm. Primary consideration in the setting of cirrhosis is hepatocellular carcinoma. In addition, there is active extravasation extending from the right anterior aspect of the lesion (series 201; images 25-30 and coronal series 202; images 28-33), extending into the adjacent intra-abdominal hematoma, previously described. The liver is diffusely abnormal with somewhat heterogeneous hepatic steatosis and irregular contours. Gallbladder and bile ducts: Stable findings with cholelithiasis. Prominent dilatation of the common bile duct. No intrahepatic biliary dilatation. No choledocholithiasis. Pancreas: Unremarkable. No mass. No ductal dilation. Spleen: Unremarkable. No splenomegaly. Adrenals: Unremarkable. No mass. Kidneys and ureters: The kidneys demonstrate normal enhancement. The previously noted subcentimeter nonobstructive nephrolithiasis in the inferior pole the right kidney is noted. No hydronephrosis. Stomach and bowel: No evidence for high-grade bowel obstruction or significant focal bowel mucosal abnormality. PELVIS: Appendix: No findings to suggest acute appendicitis. Bladder: Mild mucosal prominence of the bladder is presumed related to underdistention. Reproductive: Unremarkable as visualized. ABDOMEN and PELVIS: Intraperitoneal space: The mild to moderate ascites in the abdomen and moderate ascites in the pelvis is again noted. There are some hyperdense components extending from the abdominal hematoma into Morison's pouch and the right paracolic gutter, consistent with hemorrhagic products. No free air. Bones/joints: The bones demonstrate stable chronic compression fractures and post-vertebral plasty fracture at L1 level. No dislocation. Soft tissues: See below. Vasculature: Prominent splenorenal varices noted in the left abdomen. The left portal vein is patent. However, the right portal vein appears to be atrophied and chronically occluded. No internal thrombus identified. A recanalized paraumbilical vein is noted with subcutaneous air, studies involving the left rectus abdominous muscle. No abdominal aortic aneurysm. Lymph nodes: Unremarkable. No enlarged lymph nodes. IMPRESSION: 1. The previously described abnormal hyperdensity is in the liver near the junction of segment 4 and the left lobe of the liver, now demonstrates enhancement, consistent with an abnormal intrahepatic lesion, measuring 3.9 x 3.7 x 3.5 cm. Primary consideration in the setting of cirrhosis is hepatocellular carcinoma. In addition, there is active extravasation extending from the right anterior aspect of the lesion, extending into the adjacent intra-abdominal hematoma, previously described. 2. The mild to moderate ascites in the abdomen and moderate ascites in the pelvis is again noted. There are some hyperdense components extending from the abdominal hematoma into Morison's pouch and the right paracolic gutter, consistent with hemorrhagic products. 3. Prominent splenorenal varices noted in the left abdomen. The left portal vein is patent. However, the right portal vein appears to be atrophied and chronically occluded. No internal thrombus identified. A recanalized paraumbilical vein is noted with subcutaneous air, studies involving the left rectus abdominous muscle. <MYCVCSECTION> Communications: 02/23/20 06:34 Call Doctor Regarding Active Bleeding in any site, called Dr. Fuller on 02/22 06:34 (-05:00)
[2020-02-23 07:13] LABS: INR 1.5 (<1.2); Partial Thromboplastin Time 29.8 sec (22.0-30.0); Prothrombin Time 14.4 sec (9.0-12.0)
[2020-02-23 08:10] VITALS: BP 102/78; PULSE 89; RESP 18; TEMP 98
== END 2020-02-23 08:42 | disposition other institution (70) ==
LOC: EC 01:45
DX: K76.89 Other specified diseases of liver (principal); E87.6 Hypokalemia; D69.6 Thrombocytopenia, unspecified; J44.9 Chronic obstructive pulmonary disease, unspecified; I10 Essential (primary) hypertension; F17.200 Nicotine dependence, unspecified, uncomplicated; Z79.899 Other long term (current) drug therapy
CPT/HCPCS: 36415; 86900; 86901; 80053; 82150; 83690; 85025; 85610; 85730; 86850; 81001; 87635; 74018; 74176; 74177; 99285; 96374; 96375; 96376 ×3; J2405; J1170; Q9967